=== PATIENT | female | born 1955 | race Caucasian/White ===

== ENCOUNTER 2017-12-19 12:13 | Emergency (ER) | payer OTHER, MEDICARE ==
[~2017-12-19] VITALS: Ht 170.2 cm; Wt 90.7 kg
[~2017-12-19 12:13] MED LIST: ASPIRIN81 M4 PO; ATIVAN1 MG PO; CARVEDILOL25 M1 PO; CARVEDILOL6.25 MG PO; CITALOPRAM HBR20 MG PO; COREG 12.5MG12.5 MG PO; DULOXETINE HCL30 MG PO; ENTRESTO 97 MG1 EACH PO; FAMOTIDINE20 MG PO; GABAPENTIN300 M2 PO; HYDROXYZINE HCL25 M2 PO; LEVEMIR 10100 UNITS/ SC; LEVEMIR100 U/ML SC; LIPITOR80 M1 PO; LISINOPRIL10 MG PO; NORCO 5-325 TA1 EACH PO; NOVOLOG100 U/ML; NOVOLOG100 U/ML SC; NOVOLOG100 UNIT/2; PRILOSEC 20MG C20 MG PO; PRILOSEC40 MG PO; PRINIVIL20 M1 PO; REGLAN INJ10 MG/2 M1 PO; REGLAN10 MG PO; REGLAN5 MG PO; TRAZODONE50 MG PO; V-GO SC; VITAMIN D2000 UNI1 PO
[2017-12-19 12:16] VITALS: BP 149/86
[2017-12-20] MEDS ORDERED: TRAZODONE HCL50 M1 PO (08:46)
== END 2017-12-19 13:36 | disposition admitted as inpatient to this hospital (09) ==
LOC: ERH 12:13
DX: R11.2 Nausea with vomiting, unspecified (principal); R19.7 Diarrhea, unspecified
CPT/HCPCS: 99281; J2765

== ENCOUNTER 2017-12-20 04:46 | Inpatient (IN) | payer OTHER, MEDICARE ==
[~2017-12-20] VITALS: Ht 170.2 cm; Wt 92.3 kg
--- NOTE | 2017-12-20 05:07 | ED GI/GU/ABDOMINAL COMPLAINT ---
See Addendum History of Present Illness General Chief Complaint: General Adult Stated Complaint: NVD, DIABETIC SENT BY FOR FLUIDS Source: patient, family, old records Exam Limitations: no limitations Vital Signs & Intake/Output Vital Signs & Intake/Output Vital Signs Date Time Temp Pulse Resp B/P B/P Pulse O2 O2 Flow FiO2 Mean Ox Delivery Rate 12/20 0643 98.6 88 18 127/82 96 Nasal 2.5L Cannula 12/20 0641 98.6 96 18 127/82 88 Room Air 12/20 0454 96.4 96 20 129/89 95 Room Air Allergies Coded Allergies: Penicillins (UNKNOWN 02/09/16) Reconcile Medications Aspirin (Aspirin*) 81 MG TAB.CHEW 1 TAB PO DAILY HEART HEALTH (Reported) Atorvastatin Calcium (Lipitor) 80 MG TABLET 1 TAB PO DAILY CHOLESTEROL ( Reported) Carvedilol 25 MG TABLET 1 TAB PO BID HEART (Reported) Cholecalciferol (Vitamin D3) (Vitamin D) 2,000 UNIT TABLET 1 TAB PO DAILY VITAMIN SUPPORT (Reported) Citalopram Hydrobromide (Citalopram HBr) 20 MG TABLET 1 TAB PO DAILY DEPRESSION (Reported) Duloxetine HCl 30 MG CAPSULE.DR 1 CAP PO BID DEPRESSION (Reported) Gabapentin 300 MG CAPSULE 1 CAP PO TID DEPRESSION (Reported) Hydrocodone/Acetaminophen ([place] 5-325 Tablet) 5 MG-325 MG TABLET 1-2 TAB PO Q4-6 PRN PRN pain Hydroxyzine Hydrochloride (Atarax) 25 MG TABLET 1 TAB PO BID DEPRESSION ( Reported) Insulin Aspart (Novolog) 100 UNIT/ML VIAL 56 UNITS DAILY DIABETES (Reported) Lisinopril (Prinivil) 20 MG TABLET 1 TAB PO DAILY HTN (Reported) Sacubitril/Valsartan (Entresto 97 MG-103 MG Tablet) 97 MG-103 MG TABLET 1 TAB PO BID HEART (Reported) Triage Nurses Notes Reviewed? yes ? N Is pt currently ? No HPI: Patient presents with nausea vomiting diarrhea over the past few days. Patient has been unable to keep anything except ice chips down. Patient is on insulin pump but she has not been able to take her other medications. Patient has had DKA in the past. Patient was seen by her primary care physician and was sent to the emergency department for evaluation and IV hydration. Patient came here earlier however at that point there was a 6 hour wait and the patient did not want to wait so she went home and then returned now. Patient denies any abdominal pain. Patient denies any chest pain or shortness of breath. There is no dysuria. There are no fevers or chills. (Deepika PECK,Darrin Padgett) Past History Travel History Traveled to [place] past 21 day No Medical History Any Pertinent Medical History? see below for history Neurological: NONE EENT: NONE Cardiovascular: hypertension, hyperlipidemia, PACER/DEFIBR. 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 No (Deepika PECK,Darrin Padgett) Review of Systems Review of Systems Constitutional: Reports: no symptoms. EENTM: Reports: no symptoms. Respiratory: Reports: no symptoms. Cardiovascular: Reports: no symptoms. GI: Reports: see HPI, diarrhea, nausea, vomiting. Genitourinary: Reports: no symptoms. Musculoskeletal: Reports: no symptoms. Skin: Reports: no symptoms. Neurological/Psychological: Reports: no symptoms. Hematologic/Endocrine: Reports: no symptoms. Immunologic/Allergic: Reports: no symptoms. All Other Systems: Reviewed and Negative (Deepika PECK,Darrin Padgett) Physical Exam Physical Exam General Appearance: well developed/nourished, alert, awake, anxious, moderate distress Head: atraumatic, normal appearance Eyes: Bilateral: PERRL, EOMI. Ears, Nose, Throat, Mouth: hearing grossly normal, DRY MUCOSA Neck: normal inspection, supple, full range of motion Respiratory: normal breath sounds, chest non-tender, no respiratory distress, lungs clear Cardiovascular: regular rate/rhythm, normal peripheral pulses Gastrointestinal: normal bowel sounds, soft, non-tender, no organomegaly Back: normal inspection, normal range of motion Extremities: normal range of motion Neurologic/Psych: no motor/sensory deficits, awake, alert, oriented x 3, normal gait, normal mood/affect Skin: intact, normal color, warm/dry Core Measures ACS in differential dx? No Sepsis Present: No Sepsis Focused Exam Completed? No (Deepika PECK,Darrin Padgett) Progress Differential Diagnosis: AMI, bowel obstruction, cholecystitis, diverticulitis, gastritis, hepatitis, ischemic bowel, inflamm bowel dis, pancreatitis, peptic ulcer, PUD/GERD, SBO, UTI/pyelo, DKA Plan of Care: Orders Procedure Date/time Status MIXED VENOUS BLOOD GAS (GEN) 12/20 505 Complete URINALYSIS 12/20 505 Complete TROPONIN LEVEL 12/20 505 Complete LIPASE 12/20 505 Complete COMPREHENSIVE METABOLIC PANEL 12/20 505 Complete CBC WITHOUT DIFFERENTIAL 12/20 505 Complete AMYLASE 12/20 505 Complete ACETONE 12/20 505 Complete EKG 12/20 505 Active Laboratory Tests 12/20/17 0700: Urinalysis LIGHT H, Urine Color YEL, Urine Clarity HAZY H, Urine pH 6.0, Ur Specific [place] 1.020, Urine Protein TRACE H, Urine Ketones 15 H, Urine Nitrite NEG, Urine Bilirubin NEG, Urine Urobilinogen 0.2, Ur Leukocyte Esterase NEG, Ur Microscopic SEDIMENT EXAMINED, Urine RBC 1-3, Urine WBC 1-3 H, Ur Epithelial Cells FEW, Urine Bacteria MOD H, Urine Mucus FEW, Urine Hemoglobin TRACE-INTACT, Urine Glucose >=1000 H 12/20/17 0530: Anion Gap 18 H, Estimated GFR 38 L, BUN/Creatinine Ratio 30.7 H, Glucose 579 *H, Calcium 9.9, Total Bilirubin 0.7, AST 16, ALT 29, Alkaline Phosphatase 74, Troponin I 0.06, Total Protein 6.9, Albumin 4.4, Globulin 2.5, Albumin/Globulin Ratio 1.8, Amylase 34, Lipase 50, CBC w Diff NO MAN DIFF REQ, RBC 4.29, MCV 88.5 , MCH 29.3, MCHC 33.2, RDW 13.0, MPV 9.0, Gran % 76.3 H, Lymphocytes % 13.3 L, Monocytes % 10.2 H, Eosinophils % 0, Basophils % 0.2, Absolute Granulocytes 6.0 , Absolute Lymphocytes 1.0 L, Absolute Monocytes 0.8 H, Absolute Eosinophils 0 , Absolute Basophils 0, Acetone Level POSITIVE : UNDILUTED 12/20/17 0520: Bicarbonate Actual 24, Mixed VBG pH 7.37, Mixed VBG pCO2 43, Mixed VBG O2 Saturation 21 L, P-50 (Temp Corrected) N, Carboxyhemoglobin 0.2 L, O2 Concentration % RA, Temperature 98.6, Phlebotomy Draw Site L HAND Initial ED EKG: PENDING Hand-Off Endorsed To: Damion Kimbrough DO Endorsed Time: 0700 Pending: other (RE-EVAL) (Deepika PECK,Darrin Padgett) Departure Departure Disposition: STILL A PATIENT Condition: Stable Clinical Impression Primary Impression: Hyperglycemia Secondary Impressions: Vomiting Referrals: Alta PECK,Maddison Lewis (PCP/Family) Departure Forms: Customer Survey General Discharge Information (Deepika PECK,Darrin Padgett) Departure Comments 12/20/17 7:45 am 62-year-old female signed out to me by Dr. Poe. She is in mild diabetic ketoacidosis but does not want to stay in the hospital. She has an insulin pump. She is self administering 6 units of NovoLog now. She is received 4 L of IV fluids. We will repeat her labs after the fluids. (Damion Kimbrough DO)
[2017-12-20 05:53] LABS: ABSOLUTE BASOPHIL COUNT 0 /CUMM (0.0-0.2); ABSOLUTE EOSINOPHIL COUNT 0 /CUMM (0.0-0.7); ABSOLUTE MONOCYTE COUNT 0.8 /CUMM (0.10-0.60); BASOPHIL % 0.2 % (0.0-2.0); EOSINOPHIL % 0 % (0-5); GRANULOCYTE % 76.3 % (42.2-75.2); MEAN CORPUSCULAR HGB 29.3 PG (27.0-31.0); MEAN CORPUSCULAR HGB CONC 33.2 G/DL (33.0-37.0); MEAN CORPUSCULAR VOLUME 88.5 FL (81.0-99.0); PLATELET COUNT 201 /CUMM (130-400); RED BLOOD CELL CT 4.29 /CUMM (4.20-5.40); WHITE BLOOD CELL COUNT 7.8 /CUMM (4.8-10.8)
[2017-12-20] MEDS ORDERED: TRAZODONE HCL50 M1 PO (08:46)
--- NOTE | 2017-12-20 13:10 | Cons- Endocrinology ---
General Information and HPI Consulting Request Date of Consult: 12/20/17 Requested By: Dr. Kimbrough in ER Reason for Consult: management of uncontrolled DM type 2/ hyperglycemia hyperosmolar state. 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 In ER, blood work showed glucose 579, Cr 1.4, BUN 43, AG 18, bicarb 25; mixed veneous PH 7.37. She received 6 units of insulin sc in ER and 4 liters of normal saline. Repeat blood work done this morning showed glucose 427, Cr. 1.1, bicarb 16 and AG 20 with positive acetone at 1:4 dilution. Repeat FSG was still 389 at around 12 pm. Allergies/Medications Allergies: Coded Allergies: Penicillins (UNKNOWN 02/09/16) Home Med List: Aspirin (Aspirin*) 81 MG TAB.CHEW 1 TAB PO DAILY HEART HEALTH (Reported) Atorvastatin Calcium (Lipitor) 80 MG TABLET 1 TAB PO DAILY CHOLESTEROL ( Reported) Carvedilol 25 MG TABLET 1 TAB PO BID HEART (Reported) Cholecalciferol (Vitamin D3) (Vitamin D) 2,000 UNIT TABLET 1 TAB PO DAILY VITAMIN SUPPORT (Reported) Citalopram Hydrobromide (Citalopram HBr) 20 MG TABLET 1 TAB PO DAILY DEPRESSION (Reported) Duloxetine HCl 30 MG CAPSULE.DR 1 CAP PO BID DEPRESSION (Reported) Gabapentin 300 MG CAPSULE 1 CAP PO TID DEPRESSION (Reported) Hydroxyzine Hydrochloride (Atarax) 25 MG TABLET 1 TAB PO BID DEPRESSION ( Reported) Insulin Aspart (Novolog) 100 UNIT/ML VIAL 56 UNITS DAILY DIABETES (Reported) Lisinopril (Prinivil) 20 MG TABLET 1 TAB PO DAILY HTN (Reported) Sacubitril/Valsartan (Entresto 97 MG-103 MG Tablet) 97 MG-103 MG TABLET 1 TAB PO BID HEART (Reported) Trazodone HCl 50 MG TABLET 1 TAB PO QPM PRN SLEEP (Reported) Review of Systems Review of Systems Constitutional: Reports: see HPI. Cardiovascular: Denies: chest pain. Respiratory: Denies: short of breath. GI: Reports: abdominal pain, nausea. Genitourinary: Denies: dysuria. Hematologic/Endocrine: Reports: polyuria, polydipsia. Past History Travel History Traveled to [place] past 21 day No Medical History Neurological: NONE EENT: NONE Cardiovascular: hypertension, hyperlipidemia, PACER/DEFIBR. 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 Surgical History Surgical History: CABG Family History Relations & Conditions If Any: MOTHER FH: lung cancer Psychosocial History Services at Home: None ETOH Use: denies use Illicit Drug Use: denies illicit drug use Exam & Diagnostic Data Last 24 Hrs of Vital Signs/I&O Vital Signs Date Time Temp Pulse Resp B/P B/P Pulse O2 O2 Flow FiO2 Mean Ox Delivery Rate 12/20 1258 98.2 82 19 123/78 94 Room Air 12/20 0643 98.6 88 18 127/82 96 Nasal 2.5L Cannula 12/20 0641 98.6 96 18 127/82 88 Room Air 12/20 0454 96.4 96 20 129/89 95 Room Air Intake & Output 12/20 1600 12/20 0800 12/20 0000 Intake Total 2060 Output Total 100 Balance 1960 Intake, IV 2000 Intake, Oral 60 Output, Urine 100 Patient 200 lb Weight Physical Exam General Appearance: no apparent distress Neck: normal inspection Respiratory: decreased breath sounds Cardiovascular: regular rate/rhythm Gastrointestinal: soft Extremities: no edema Labs/Kamran Results: Laboratory Tests 12/20 1004 Chemistry Sodium (137 - 145 mmol/L) 142 Potassium (3.5 - 5.1 mmol/L) 4.4 Chloride (98 - 107 mmol/L) 106 Carbon Dioxide (22 - 30 mmol/L) 16 L Anion Gap (5 - 16) 20 H BUN (7 - 17 mg/dL) 37 H Creatinine (0.5 - 1.0 mg/dL) 1.1 H Estimated GFR (>60 ml/min) 51 L BUN/Creatinine Ratio (7 - 25 %) 33.6 H Glucose (65 - 99 mg/dL) 427 H Calcium (8.4 - 10.2 mg/dL) 8.6 Zry-Z-Scciabzdeay Pept (<125 pg/mL) 28995 H Toxicology Acetone Level (NEGATIVE) POSITIVE AT 1:4 DIL 12/20 0700 Urines Urinalysis LIGHT H Urine Color (YEL,AMB,STR) YEL Urine Clarity (CLEAR) HAZY H Urine pH (5.0 - 8.0) 6.0 Ur Specific [place] (1.001 - 1.035) 1.020 Urine Protein (NEG,<30 MG/DL) TRACE H Urine Ketones (NEG) 15 H Urine Nitrite (NEG) NEG Urine Bilirubin (NEG) NEG Urine Urobilinogen (0.1 - 1.0 EU/dl) 0.2 Ur Leukocyte Esterase (NEG) NEG Ur Microscopic SEDIMENT EXAMINED Urine RBC (0 - 5 /HPF) 1-3 Urine WBC (0 - 2 /HPF) 1-3 H Ur Epithelial Cells (NONE,FEW) FEW Urine Bacteria (NEG/NONE) MOD H Urine Mucus (FEW,NONE) FEW Urine Hemoglobin (NEG) TRACE-INTACT Urine Glucose (N MG/DL) >=1000 H 12/20 12/20 0530 0520 Blood Gas Bicarbonate Actual (22 - 26 MEQ/L) 24 Mixed VBG pH (7.31 - 7.41 PH) 7.37 Mixed VBG pCO2 (41 - 51 TORR) 43 Mixed VBG O2 Saturation (35 - 45 TORR) 21 L P-50 (Temp Corrected) N Carboxyhemoglobin (1.5 - 5.0 %) 0.2 L O2 Concentration % RA Temperature (97.0 - 100.0 FARH) 98.6 Chemistry Sodium (137 - 145 mmol/L) 138 Potassium (3.5 - 5.1 mmol/L) 5.1 Chloride (98 - 107 mmol/L) 95 L Carbon Dioxide (22 - 30 mmol/L) 25 Anion Gap (5 - 16) 18 H BUN (7 - 17 mg/dL) 43 H Creatinine (0.5 - 1.0 mg/dL) 1.4 H Estimated GFR (>60 ml/min) 38 L BUN/Creatinine Ratio (7 - 25 %) 30.7 H Glucose (65 - 99 mg/dL) 579 *H Calcium (8.4 - 10.2 mg/dL) 9.9 Total Bilirubin (0.2 - 1.3 mg/dL) 0.7 AST (14 - 36 U/L) 16 ALT (9 - 52 U/L) 29 Alkaline Phosphatase (<127 U/L) 74 Troponin I (< 0.11 ng/ml) 0.06 Total Protein (6.3 - 8.2 g/dL) 6.9 Albumin (3.5 - 5.0 g/dL) 4.4 Globulin (1.9 - 4.2 gm/dL) 2.5 Albumin/Globulin Ratio (1.1 - 2.2 %) 1.8 Amylase (30 - 110 U/L) 34 Lipase (23 - 300 U/L) 50 Hematology CBC w Diff NO MAN DIFF REQ WBC (4.8 - 10.8 /CUMM) 7.8 RBC (4.20 - 5.40 /CUMM) 4.29 Hgb (12.0 - 16.0 G/DL) 12.6 Hct (37 - 47 %) 38.0 MCV (81.0 - 99.0 FL) 88.5 MCH (27.0 - 31.0 PG) 29.3 MCHC (33.0 - 37.0 G/DL) 33.2 RDW (11.5 - 14.5 %) 13.0 Plt Count (130 - 400 /CUMM) 201 MPV (7.4 - 10.4 FL) 9.0 Gran % (42.2 - 75.2 %) 76.3 H Lymphocytes % (20.5 - 51.1 %) 13.3 L Monocytes % (1.7 - 9.3 %) 10.2 H Eosinophils % (0 - 5 %) 0 Basophils % (0.0 - 2.0 %) 0.2 Absolute Granulocytes (1.4 - 6.5 /CUMM) 6.0 Absolute Lymphocytes (1.2 - 3.4 /CUMM) 1.0 L Absolute Monocytes (0.10 - 0.60 /CUMM) 0.8 H Absolute Eosinophils (0.0 - 0.7 /CUMM) 0 Absolute Basophils (0.0 - 0.2 /CUMM) 0 Miscellaneous Phlebotomy Draw Site L HAND Toxicology Acetone Level (NEGATIVE) POSITIVE : UNDILUTED Assessment/Plan Assessment/Plan 62 y/o female who has had a hx of diabetes type 2, dyslipidemia, hypertension, CAD status post CABG, aneurysm repair, history of V-tach status post AICD placement and a pacer placement, history of anxiety and depression, history of CHF due to ischemic cardiomyopathy, was on VGO-20 with insulin bolus between 4-6 units before meals, 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 In ER, blood work showed glucose 579, Cr 1.4, BUN 43, AG 18, bicarb 25; mixed veneous PH 7.37. She received 6 units of insulin sc in ER and 4 liters of normal saline. Repeat blood work done this morning showed glucose 427, Cr. 1.1, bicarb 16 and AG 20 with positive acetone at 1:4 dilution suggestive of hyperosmolar hyperglycemic state. However, her bicarb has declined from 25 at around 5 am to 16 at around 10 am. Repeat BNP 37979. management: 1. stop VGO device; 2. start insulin drip at 4 units per hour; monitor FSG every one hour; adjust insulin drip rate to decrease glucose level by 50-100 mg/dl/hour; 3. repeat chemistry panel at round 3 pm this afternoon to look for a trend. 4. if her glucose level is better controlled and her bicarb level improves, please inform me and then I will switch insulin drip to an insulin sc regimen. 5. check HbA1c. 6. [place] off [place] [address] and she has had hx of CHF ( EF 25-30% in 2016); 7. consider lasix if it is indicated. will follow. Consult Acknowledgment - Thank you for your consult request.
--- NOTE | 2017-12-20 13:42 | RADIOLOGY REPORT ---
EXAMINATION: XR PORTABLE CHEST CLINICAL INFORMATION: Rule out interstitial edema. Shortness of breath, diabetic ketoacidosis. COMPARISON: 11/26/2015 TECHNIQUE: Portable frontal view of the chest was obtained. FINDINGS: Pulmonary vascularity is increasingly prominent and indistinct, particularly at the lung bases. No pleural effusion seen. No dense focal consolidation or mass. Sternal wires again noted. 3-lead pacer/AICD again seen with contiguous, intact leads unchanged in position. IMPRESSION: Pulmonary vascularity is increasingly prominent and indistinct, consistent with mild interstitial pulmonary edema. No pleural effusions however.
--- NOTE | 2017-12-20 14:00 | History & Physical ---
General Information and HPI MD Statement: I have seen and personally examined ISADORA LONG and documented this H&P. The patient is a 62 year old F who presented with a patient stated chief complaint of [nausea, vomiting and diarrhea]. Source of Information: patient, old records Exam Limitations: no limitations History of Present Illness: This is a 62 yo female with PMH of IDDM on insulin pump, HTN, HLD, ischemic cardiomyopathy with reduced EF 25-30% s/p PM and AICD, depression, OCD who comes in for CC of nausea, vomiting, diarrhea and malaise. She states that she has had DKA before and "this is how I usually feel before I get really bad." She was told by PCP to come to ED for IVF yesterday. She came but did not want to "wait for 6 hrs to be seen," so she came back this morning. Pt states that she symptoms started last Sunday with dairrhea "about 4x every hour." Subsequently, the next day her diarrhea stopped and she started vomiting. She has continued with severe nausea and has been unable to take any of her medication since Sunday. She has sick contacts in grandchildren who were diagnosed with influenza , strep, and "GI bug" recently. 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 She states that since her illness she has not taken any insulin (since Sunday until this AM) and her intake was mostly popsicles, juice and soda. She has not taken any of her other medications due to vomiting. She has no SOB, CP, LR, change in vision, abdominal pain. She does endorse increased thirst, decreased urination, nausea, vomiting, diarrhea and increased anxiety. Soc hx pertinent for 60-80 pack yr smoking hx but pt quit 15+ yrs ago. Surgical hx pertinent for CABG. Allergies/Medications Allergies: Coded Allergies: Penicillins (UNKNOWN 02/09/16) Home Med list Aspirin (Aspirin*) 81 MG TAB.CHEW 1 TAB PO DAILY HEART HEALTH (Reported) Atorvastatin Calcium (Lipitor) 80 MG TABLET 1 TAB PO DAILY CHOLESTEROL ( Reported) Carvedilol 25 MG TABLET 1 TAB PO BID HEART (Reported) Cholecalciferol (Vitamin D3) (Vitamin D) 2,000 UNIT TABLET 1 TAB PO DAILY VITAMIN SUPPORT (Reported) Citalopram Hydrobromide (Citalopram HBr) 20 MG TABLET 1 TAB PO DAILY DEPRESSION (Reported) Duloxetine HCl 30 MG CAPSULE.DR 1 CAP PO BID DEPRESSION (Reported) Gabapentin 300 MG CAPSULE 1 CAP PO TID DEPRESSION (Reported) Hydroxyzine Hydrochloride (Atarax) 25 MG TABLET 1 TAB PO BID DEPRESSION ( Reported) Insulin Aspart (Novolog) 100 UNIT/ML VIAL 56 UNITS DAILY DIABETES (Reported) Lisinopril (Prinivil) 20 MG TABLET 1 TAB PO DAILY HTN (Reported) Sacubitril/Valsartan (Entresto 97 MG-103 MG Tablet) 97 MG-103 MG TABLET 1 TAB PO BID HEART (Reported) Trazodone HCl 50 MG TABLET 1 TAB PO QPM PRN SLEEP (Reported) Compliance With Home Meds: GOOD Past History Travel History Traveled to [place] past 21 day No Medical History Neurological: NONE EENT: NONE Cardiovascular: hypertension, hyperlipidemia, PACER/DEFIBR. 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 Exam & Diagnostic Data Last 24 Hrs of Vital Signs/I&O Vital Signs Date Time Temp Pulse Resp B/P B/P Pulse O2 O2 Flow FiO2 Mean Ox Delivery Rate 12/20 1258 98.2 82 19 123/78 94 Room Air 12/20 0643 98.6 88 18 127/82 96 Nasal 2.5L Cannula 12/20 0641 98.6 96 18 127/82 88 Room Air 12/20 0454 96.4 96 20 129/89 95 Room Air Intake & Output 12/20 1600 12/20 0800 12/20 0000 Intake Total 0 Output Total 100 Balance 1960 Intake, IV 2000 Intake, Oral 60 Output, Urine 100 Patient 90.718 kg Weight Physical Exam General Appearance Alert, Oriented X3, Cooperative, No Acute Distress Skin sm. lesions on bilat le that pt picks at. no open sores or bleeding HEENT Atraumatic, PERRLA, EOMI, mucous membranes dry. Neck Supple, No JVD Cardiovascular Regular Rate, Normal S1, Normal S2, No Murmurs Lungs wheezes throughout all lung nichols Abdomen Normal Bowel Sounds, Soft, No Tenderness Extremities No Edema Last 24 Hrs of Labs/Kamran: Laboratory Tests 12/20/17 1004: Anion Gap 20 H, Estimated GFR 51 L, BUN/Creatinine Ratio 33.6 H, Glucose 427 H, Calcium 8.6, Wqd-M-Yumkvwczmsl Pept 34233 H, Acetone Level POSITIVE AT 1:4 DIL 12/20/17 0700: Urinalysis LIGHT H, Urine Color YEL, Urine Clarity HAZY H, Urine pH 6.0, Ur Specific [place] 1.020, Urine Protein TRACE H, Urine Ketones 15 H, Urine Nitrite NEG, Urine Bilirubin NEG, Urine Urobilinogen 0.2, Ur Leukocyte Esterase NEG, Ur Microscopic SEDIMENT EXAMINED, Urine RBC 1-3, Urine WBC 1-3 H, Ur Epithelial Cells FEW, Urine Bacteria MOD H, Urine Mucus FEW, Urine Hemoglobin TRACE-INTACT, Urine Glucose >=1000 H 12/20/17 0530: Anion Gap 18 H, Estimated GFR 38 L, BUN/Creatinine Ratio 30.7 H, Glucose 579 *H, Calcium 9.9, Total Bilirubin 0.7, AST 16, ALT 29, Alkaline Phosphatase 74, Troponin I 0.06, Total Protein 6.9, Albumin 4.4, Globulin 2.5, Albumin/Globulin Ratio 1.8, Amylase 34, Lipase 50, CBC w Diff NO MAN DIFF REQ, RBC 4.29, MCV 88.5 , MCH 29.3, MCHC 33.2, RDW 13.0, MPV 9.0, Gran % 76.3 H, Lymphocytes % 13.3 L, Monocytes % 10.2 H, Eosinophils % 0, Basophils % 0.2, Absolute Granulocytes 6.0 , Absolute Lymphocytes 1.0 L, Absolute Monocytes 0.8 H, Absolute Eosinophils 0 , Absolute Basophils 0, Acetone Level POSITIVE : UNDILUTED 12/20/17 0520: Bicarbonate Actual 24, Mixed VBG pH 7.37, Mixed VBG pCO2 43, Mixed VBG O2 Saturation 21 L, P-50 (Temp Corrected) N, Carboxyhemoglobin 0.2 L, O2 Concentration % RA, Temperature 98.6, Phlebotomy Draw Site L HAND Microbiology 12/20 1407 BLOOD: Blood Culture - RECD 12/20 1359 BLOOD: Blood Culture - RECD 12/20 1314 URINE ROUT: Urine Culture - ORD Assessment/Plan Assessment: ASSESSMENT: This is a 62 yo female with PMH of of IDDM on insulin pump, HTN, HLD, ischemic cardiomyopathy with reduced EF 25-30% s/p PM and AICD, depression, and OCD who come in for CC nausea, vomiting, diarrhea and malaise. Given hx of multiple episodes of DKA and recent precipitating illness with glucose 579 pt was worked up with initial concern for diabetic ketoacidosis. However, initial labs showed bicarb 25, slight anion gap and VBG pH 7.34. As such, pt seems to meet critera more suggestive of Hyperosmolar Non-ketotic state. After 4L of IVF and 6u SQ insulin in ED her bicarb dropped from 25--> 16, her AG went from 18-->20, and her glucose went from 579 --> 427. Additionally, noting that pt has EF 25 and has already recieved 4L of IVF, BNP 45026 and pt c/o subjective slight SOB, we stopped IVF for c/o volume overload. Given worsening of her hyperosmolar state and concern for precipitating heart failure pt will be admitted to ICU for further management of HHS. PLAN: 1. Hyperosmolar non ketotic state: Initial labs are more suggestive of HHS than DKA, but upon 4l hydration her bicarb dropped to 16. Will continue to monitor pt in ICU and re-assess with next labs. Suspect precipitant of her HHS is gastrointestinal illness likely of viral etiology. She states she is feeling better now, her abdominal exam is benign. If clinically worsens will consider abdominal imaging. * STOP Insulin pump * Insulin drip * Appreciate Endo recs * Hba1c * Blood cx * Urine cx * UA * Q1hr FS * HOLD HYDRATION * Repeat labs at 3 PM 2. HFrEF: Echo in 2016 shows EF 25-30%. Pt recieved large amt of fluid in ED. BNP 06257. She c/o some slight subjective SOB. She has PM/AICD in place. On physical exam pt had wheezing to auscultation. I could not appreciate crackles. She denies hx of COPD but does have prominent smoking hx. * XRAY * HOLD fluids * Consider diuresis if clinically worsens * Appreciate cardio consult * Hold home carvedilol * If pt detriorates will place on bipap * Trop and EKG x3 * Con't Entresto 3. Depression/OCD: * Continue citalopram, duloxetine * Hold Trazadone, Atarax and Gabapentin 4. CAD: * Con't ASA * Con't Lipitor DVT Ppx FC NPO As Ranked By This Provider Problem List: 1. Vomiting 2. Nausea and vomiting Core Measures/Misc (07/22) Acute Coronary Syndrome ACS Diagnosis: No Congestive Heart Failure Congestive Heart Failure Diagnosis No Cerebrovascular Accident CVA/TIA Diagnosis: No VTE (View Protocol) VTE Risk Factors Acute Medical Illness No Mechanical VTE Prophylaxis d/t N/A MechProphylax Ordered No VTE Pharm Prophylaxis d/t NA PharmProphylax ordered Sepsis (View protocol) Sepsis Present: No
[2017-12-20 15:00] VITALS: BP 132/82
--- NOTE | 2017-12-20 18:33 | Event Note ---
Event Note Event Note: AG closed, updated Dr. anthony, per her recs will DC Ins drip, will start Levemir 10 BID and novolog SS. Updated Dr. Herrera about positive trops. Patient is asymptomatic, EKG no significant changed. He will see the patient tonight.
--- NOTE | 2017-12-20 19:07 | Cons- Cardiology ---
General Information and HPI Consulting Request Date of Consult: 12/20/17 Requested By: Reid Pitts MD History of Present Illness: The patient is a 62-year-old female with history of CAD, status post CABG, ischemic heart myopathy, LVEF 25-30%, implanted defibrillator. She presented with complaint of nausea, vomiting, diarrhea, and malaise. She has been exposed to multiple people with viral infections recently. She was found to have severely elevated blood sugar, and evidence of hyperosmolar hyperglycemic state. She is noted to have elevated proBNP and mild troponin elevation. She notes recent shortness of breath with mild chest tightness associated with that. She was treated with 4 L of IV fluid, however that has been held because of concern for volume overload. She was admitted to the intensive care unit and started on insulin drip. No syncope. No orthopnea. No diaphoresis. Allergies/Medications Allergies: Coded Allergies: Penicillins (UNKNOWN 02/09/16) Home Med List: Aspirin (Aspirin*) 81 MG TAB.CHEW 1 TAB PO DAILY HEART HEALTH (Reported) Atorvastatin Calcium (Lipitor) 80 MG TABLET 1 TAB PO DAILY CHOLESTEROL ( Reported) Carvedilol 25 MG TABLET 1 TAB PO BID HEART (Reported) Cholecalciferol (Vitamin D3) (Vitamin D) 2,000 UNIT TABLET 1 TAB PO DAILY VITAMIN SUPPORT (Reported) Citalopram Hydrobromide (Citalopram HBr) 20 MG TABLET 1 TAB PO DAILY DEPRESSION (Reported) Duloxetine HCl 30 MG CAPSULE.DR 1 CAP PO BID DEPRESSION (Reported) Gabapentin 300 MG CAPSULE 1 CAP PO TID DEPRESSION (Reported) Hydroxyzine Hydrochloride (Atarax) 25 MG TABLET 1 TAB PO BID DEPRESSION ( Reported) Insulin Aspart (Novolog) 100 UNIT/ML VIAL 56 UNITS DAILY DIABETES (Reported) Lisinopril (Prinivil) 20 MG TABLET 1 TAB PO DAILY HTN (Reported) Sacubitril/Valsartan (Entresto 97 MG-103 MG Tablet) 97 MG-103 MG TABLET 1 TAB PO BID HEART (Reported) Trazodone HCl 50 MG TABLET 1 TAB PO QPM PRN SLEEP (Reported) Current Medications: Current Medications Sig/Theo Start time Last Medication Dose Route Stop Time Status Admin Acetaminophen 650 MG Q6P PRN 12/20 1315 AC PO Acetaminophen 1,000 MG Q6P PRN 12/20 1315 AC IV Aspirin 81 MG DAILY 12/20 1522 AC 12/20 PO 1741 Atorvastatin Calcium 80 MG DAILY 12/20 1522 AC 12/20 PO 1741 Citalopram 20 MG DAILY 12/21 1000 AC Hydrobromide PO Citalopram 20 MG ONCE ONE 12/20 1145 DC 12/20 Hydrobromide PO 12/20 1146 1352 Duloxetine HCl 30 MG BID 12/20 2200 AC PO Enoxaparin Sodium 40 MG DAILY 12/21 1000 AC SC Gabapentin 0 .STK-MED ONE 12/20 1153 DC PO Gabapentin 300 MG STAT STA 12/20 1145 DC 12/20 PO 12/20 1146 1155 Hydroxyzine HCl 0 .STK-MED ONE 12/20 1153 DC PO Hydroxyzine HCl 25 MG ONCE ONE 12/20 1145 DC 12/20 PO 12/20 1146 1155 Insulin Aspart 0 TIDAC/HS 12/20 2100 AC SC Insulin Detemir 10 UNITS BID 12/20 1815 AC 12/20 SC 1812 Insulin Human Regular 100 UNIT Q24H 12/20 1230 AC 12/20 Sodium Chloride 100 ML IV 1238 Insulin Human Regular 100 UNIT ONCE ONE 12/20 1200 DC Sodium Chloride 100 ML IV 12/20 1201 Lisinopril 20 MG DAILY 12/21 1000 AC PO Metoclopramide HCl 10 MG ONCE ONE 12/20 0545 DC 12/20 IV 12/20 0546 0551 Morphine Sulfate 2 MG Q4P PRN 12/20 1315 AC IV Ondansetron HCl 4 MG Q6P PRN 12/20 1315 AC IV Ondansetron HCl 0 .STK-MED ONE 12/20 0532 DC .ROUTE Ondansetron HCl 4 MG ONCE ONE 12/20 05 DC 12/20 IV 12/20 0516 0530 Sodium Chloride 1,000 ML BOLUS ONE 12/20 0645 DC 12/20 IV 12/20 0744 0731 Sodium Chloride 1,000 ML BOLUS ONE 12/20 0645 DC 12/20 IV 12/20 0744 0731 Sodium Chloride 1,000 ML BOLUS ONE 12/20 0515 DC 12/20 IV 12/20 0614 0530 Sodium Chloride 1,000 ML BOLUS ONE 12/20 0515 DC 12/20 IV 12/20 0614 0608 Review of Systems Review of Systems: No rash. No trauma. No fever. No chills. All other systems were reviewed, and were noted to be negative. Past History Travel History Traveled to [place] past 21 day No Medical History Blood Transfusion Hx: Yes Neurological: NONE EENT: NONE Cardiovascular: hypertension, hyperlipidemia, PACER/DEFIBR. 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 Home Services at Home: None Smoking Status: Former Smoker ETOH Use: denies use Illicit Drug Use: denies illicit drug use Exam & Diagnostic Data Vital Signs and I&O Vital Signs Date Time Temp Pulse Resp B/P B/P Pulse O2 O2 Flow FiO2 Mean Ox Delivery Rate 12/20 1530 92 Room Air 12/20 1500 99.0 99 20 132/82 92 Room Air 12/20 1258 98.2 82 19 123/78 94 Room Air 12/20 0643 98.6 88 18 127/82 96 Nasal 2.5L Cannula 12/20 0641 98.6 96 18 127/82 88 Room Air 12/20 0454 96.4 96 20 129/89 95 Room Air Intake & Output 12/20 1600 12/20 0800 12/20 0000 12/19 1600 12/19 0800 12/19 0000 Intake Total 200 2060 Output Total 100 Balance 200 1960 Intake, IV 2000 Intake, Oral 200 60 Output, Urine 100 Patient 203 lb 200 lb Weight Weight Bed scale Measurement Method Physical Exam: Gen: The patient is in no acute distress HEENT: Normal nose, ears, and oropharynx. Pupils equal bilaterally. Conjunctiva normal. Neck: Supple with no JVD, no masses, and no thyromegaly Lungs: Clear to auscultation with normal respiratory effort Heart: RRR, S1, S2, 1 out of 6 systolic murmur. No peripheral edema, 2+ pulses in the lower extremities bilaterally Abdomen: Soft, nontender, no masses. No hepatomegaly. No splenomegaly Extremities: No clubbing or cyanosis. Normal muscle strength in the upper and lower extremities Skin: Normal skin turgor with no skin ulcers or lesions noted. Neuro: Cranial nerves intact. Sensation intact Psych: Alert and oriented x 3 with appropriate affect Labs/Kamran Results: Laboratory Tests 12/20 12/20 12/20 1850 1600 1600 Chemistry Sodium (137 - 145 mmol/L) 136 L Potassium (3.5 - 5.1 mmol/L) 4.5 Chloride (98 - 107 mmol/L) 100 Carbon Dioxide (22 - 30 mmol/L) 26 Anion Gap (5 - 16) 11 BUN (7 - 17 mg/dL) 37 H Creatinine (0.5 - 1.0 mg/dL) 1.2 H Estimated GFR (>60 ml/min) 46 L BUN/Creatinine Ratio (7 - 25 %) 30.8 H Lactic Acid (0.7 - 2.1 mmol/L) Pending 2.2 H Troponin I (< 0.11 ng/ml) 0.18 *H 12/20 1004 Chemistry Sodium (137 - 145 mmol/L) 142 Potassium (3.5 - 5.1 mmol/L) 4.4 Chloride (98 - 107 mmol/L) 106 Carbon Dioxide (22 - 30 mmol/L) 16 L Anion Gap (5 - 16) 20 H BUN (7 - 17 mg/dL) 37 H Creatinine (0.5 - 1.0 mg/dL) 1.1 H Estimated GFR (>60 ml/min) 51 L BUN/Creatinine Ratio (7 - 25 %) 33.6 H Glucose (65 - 99 mg/dL) 427 H Calcium (8.4 - 10.2 mg/dL) 8.6 [id number] Pept (<125 pg/mL) 56413 H Toxicology Acetone Level (NEGATIVE) POSITIVE AT 1:4 DIL 12/20 0700 Urines Urinalysis LIGHT H Urine Color (YEL,AMB,STR) YEL Urine Clarity (CLEAR) HAZY H Urine pH (5.0 - 8.0) 6.0 Ur Specific [place] (1.001 - 1.035) 1.020 Urine Protein (NEG,<30 MG/DL) TRACE H Urine Ketones (NEG) 15 H Urine Nitrite (NEG) NEG Urine Bilirubin (NEG) NEG Urine Urobilinogen (0.1 - 1.0 EU/dl) 0.2 Ur Leukocyte Esterase (NEG) NEG Ur Microscopic SEDIMENT EXAMINED Urine RBC (0 - 5 /HPF) 1-3 Urine WBC (0 - 2 /HPF) 1-3 H Ur Epithelial Cells (NONE,FEW) FEW Urine Bacteria (NEG/NONE) MOD H Urine Mucus (FEW,NONE) FEW Urine Hemoglobin (NEG) TRACE-INTACT Urine Glucose (N MG/DL) >=1000 H 12/20 12/20 0530 0520 Blood Gas Bicarbonate Actual (22 - 26 MEQ/L) 24 Mixed VBG pH (7.31 - 7.41 PH) 7.37 Mixed VBG pCO2 (41 - 51 TORR) 43 Mixed VBG O2 Saturation (35 - 45 TORR) 21 L P-50 (Temp Corrected) N Carboxyhemoglobin (1.5 - 5.0 %) 0.2 L O2 Concentration % RA Temperature (97.0 - 100.0 FARH) 98.6 Chemistry Sodium (137 - 145 mmol/L) 138 Potassium (3.5 - 5.1 mmol/L) 5.1 Chloride (98 - 107 mmol/L) 95 L Carbon Dioxide (22 - 30 mmol/L) 25 Anion Gap (5 - 16) 18 H BUN (7 - 17 mg/dL) 43 H Creatinine (0.5 - 1.0 mg/dL) 1.4 H Estimated GFR (>60 ml/min) 38 L BUN/Creatinine Ratio (7 - 25 %) 30.7 H Glucose (65 - 99 mg/dL) 579 *H Hemoglobin A1c (4.2 - 5.8 %) Pending Calcium (8.4 - 10.2 mg/dL) 9.9 Total Bilirubin (0.2 - 1.3 mg/dL) 0.7 AST (14 - 36 U/L) 16 ALT (9 - 52 U/L) 29 Alkaline Phosphatase (<127 U/L) 74 Troponin I (< 0.11 ng/ml) 0.06 Total Protein (6.3 - 8.2 g/dL) 6.9 Albumin (3.5 - 5.0 g/dL) 4.4 Globulin (1.9 - 4.2 gm/dL) 2.5 Albumin/Globulin Ratio (1.1 - 2.2 %) 1.8 Amylase (30 - 110 U/L) 34 Lipase (23 - 300 U/L) 50 Hematology CBC w Diff NO MAN DIFF REQ WBC (4.8 - 10.8 /CUMM) 7.8 RBC (4.20 - 5.40 /CUMM) 4.29 Hgb (12.0 - 16.0 G/DL) 12.6 Hct (37 - 47 %) 38.0 MCV (81.0 - 99.0 FL) 88.5 MCH (27.0 - 31.0 PG) 29.3 MCHC (33.0 - 37.0 G/DL) 33.2 RDW (11.5 - 14.5 %) 13.0 Plt Count (130 - 400 /CUMM) 201 MPV (7.4 - 10.4 FL) 9.0 Gran % (42.2 - 75.2 %) 76.3 H Lymphocytes % (20.5 - 51.1 %) 13.3 L Monocytes % (1.7 - 9.3 %) 10.2 H Eosinophils % (0 - 5 %) 0 Basophils % (0.0 - 2.0 %) 0.2 Absolute Granulocytes (1.4 - 6.5 /CUMM) 6.0 Absolute Lymphocytes (1.2 - 3.4 /CUMM) 1.0 L Absolute Monocytes (0.10 - 0.60 /CUMM) 0.8 H Absolute Eosinophils (0.0 - 0.7 /CUMM) 0 Absolute Basophils (0.0 - 0.2 /CUMM) 0 Miscellaneous Phlebotomy Draw Site L HAND Toxicology Acetone Level (NEGATIVE) POSITIVE : UNDILUTED Diagnostic Data EKG Results EKG tracing is reviewed, and reveals ventricular paced rhythm at a rate of 98 CXR Results Pulmonary vascularity is increasingly prominent and indistinct, consistent with mild interstitial pulmonary edema. No pleural effusions however. Other Results Echocardiogram 11/29/15: Mild left ventricular dilatation. Mild concentric left ventricular hypertrophy. Severely decreased left ventricular systolic function. Left ventricular ejection fraction is estimated at 25-30 %. Defibrillator wire in the right ventricular cavity. Mild mitral regurgitation. Mild tricuspid regurgitation. Right ventricular systolic pressure estimated at 39 mmHg. Mild pulmonic regurgitation. Assessment/Plan Assessment/Plan Assessment: 1. CAD, status post CABG 2. Chronic HFrEF secondary to ischemic cardiomyopathy, with possible mild acute exacerbation 3. Diabetes mild 4. Hyperosmolar hyperkeratotic state 5. Mild troponin elevation, likely secondary to demand ischemia Recommendations: * Would hold IV fluid for now given reduced ejection fraction, and evidence of worsening volume overload on chest x-ray * Insulin as per endocrinology * Continue aspirin * Restart carvedilol if blood pressure is adequate * Note that the CMR list both Entresto and lisinopril, which is incorrect. The patient should be only on an Entresto. Lisinopril and Entresto cannot be given together. If the blood pressure is adequate, would change back to entrusted tomorrow, and discontinue lisinopril. * Repeat echocardiogram * Repeat EKG in the morning Consult Acknowledgment - Thank you for your consult request.
[2017-12-20 23:00] VITALS: BP 130/64
[2017-12-21 05:00] LABS: ABSOLUTE BASOPHIL COUNT 0 /CUMM (0.0-0.2); ABSOLUTE EOSINOPHIL COUNT 0 /CUMM (0.0-0.7); ABSOLUTE LYMPH COUNT 1.3 /CUMM (1.2-3.4); EOSINOPHIL % 0 % (0-5); HEMATOCRIT 37.6 % (37-47); MEAN PLATELET VOLUME 9.1 FL (7.4-10.4)
[2017-12-21 05:26] LABS: BASOPHIL % 0.1 % (0.0-2.0); MEAN CORPUSCULAR HGB 29.9 PG (27.0-31.0); MEAN CORPUSCULAR HGB CONC 33.4 G/DL (33.0-37.0); MEAN CORPUSCULAR VOLUME 89.6 FL (81.0-99.0); PLATELET COUNT 193 /CUMM (130-400); RED BLOOD CELL CT 4.19 /CUMM (4.20-5.40)
[2017-12-21 05:45] LABS: WHITE BLOOD CELL COUNT 16.2 /CUMM (4.8-10.8)
[2017-12-21 05:47] LABS: GRANULOCYTE % 86.2 % (42.2-75.2)
[2017-12-21 08:00] VITALS: BP 130/70
--- NOTE | 2017-12-21 08:57 | Cons- CRCU ---
See Addendum General Information and HPI Consulting Request Date of Consult: 12/21/17 Requested By: Reid Pitts MD Reason for Consult: Hyperosmolar non ketotic state Exam Limitations: no limitations History of Present Illness: This is a 62 yo female with PMH of IDDM on insulin pump, HTN, HLD, ischemic cardiomyopathy with reduced EF 25-30% s/p PM and AICD, depression, OCD who comes in for CC of nausea, vomiting, diarrhea and malaise. She states that she has had DKA before and "this is how I usually feel before I get really bad." She was told by PCP to come to ED for IVF yesterday. She came but did not want to "wait for 6 hrs to be seen," so she came back this morning. Pt states that she symptoms started last Sunday with dairrhea "about 4x every hour." Subsequently, the next day her diarrhea stopped and she started vomiting. She has continued with severe nausea and has been unable to take any of her medication since Sunday. She has sick contacts in grandchildren who were diagnosed with influenza , strep, and "GI bug" recently. 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 She states that since her illness she has not taken any insulin (since Sunday until this AM) and her intake was mostly popsicles, juice and soda. She has not taken any of her other medications due to vomiting. She has no SOB, CP, LR, change in vision, abdominal pain. She does endorse increased thirst, decreased urination, nausea, vomiting, diarrhea and increased anxiety. Soc hx pertinent for 60-80 pack yr smoking hx but pt quit 15+ yrs ago. Surgical hx pertinent for CABG. Allergies/Medications Allergies: Coded Allergies: Penicillins (UNKNOWN 02/09/16) Home Med List: Aspirin (Aspirin*) 81 MG TAB.CHEW 1 TAB PO DAILY HEART HEALTH (Reported) Atorvastatin Calcium (Lipitor) 80 MG TABLET 1 TAB PO DAILY CHOLESTEROL ( Reported) Carvedilol 25 MG TABLET 1 TAB PO BID HEART (Reported) Cholecalciferol (Vitamin D3) (Vitamin D) 2,000 UNIT TABLET 1 TAB PO DAILY VITAMIN SUPPORT (Reported) Citalopram Hydrobromide (Citalopram HBr) 20 MG TABLET 1 TAB PO DAILY DEPRESSION (Reported) Duloxetine HCl 30 MG CAPSULE.DR 1 CAP PO BID DEPRESSION (Reported) Gabapentin 300 MG CAPSULE 1 CAP PO TID DEPRESSION (Reported) Hydroxyzine Hydrochloride (Atarax) 25 MG TABLET 1 TAB PO BID DEPRESSION ( Reported) Insulin Aspart (Novolog) 100 UNIT/ML VIAL 56 UNITS DAILY DIABETES (Reported) Sacubitril/Valsartan (Entresto 97 MG-103 MG Tablet) 97 MG-103 MG TABLET 1 TAB PO BID HEART (Reported) Trazodone HCl 50 MG TABLET 1 TAB PO QPM PRN SLEEP (Reported) Review of Systems Review of Systems Constitutional: Reports: see HPI. Past History Travel History Traveled to [place] past 21 day No Medical History Blood Transfusion Hx: Yes Neurological: NONE EENT: NONE Cardiovascular: hypertension, hyperlipidemia, PACER/DEFIBR. 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 Home Services at Home: None Smoking Status: Former Smoker ETOH Use: denies use Illicit Drug Use: denies illicit drug use Exam & Diagnostic Data Last 24 Hrs of Vital Signs/I&O Vital Signs Date Time Temp Pulse Resp B/P B/P Pulse O2 O2 Flow FiO2 Mean Ox Delivery Rate 12/21 0400 996 Nasal 2.0L Cannula 12/21 0000 96 Nasal 2.0L Cannula 12/20 2300 97.0 82 21 130/64 96 Nasal 2.0L Cannula 12/20 2000 92 Nasal 2.0L Cannula 12/20 1530 92 Room Air 12/20 1500 99.0 99 20 132/82 92 Room Air 12/20 1258 98.2 82 19 123/78 94 Room Air Intake & Output 12/21 1600 12/21 0800 12/21 0000 Intake Total 60 147 Output Total Balance 60 147 Intake, IV 27 Intake, Oral 60 120 Physical Exam General Appearance: well developed/nourished, no apparent distress, alert, awake , comfortable Other Physical Findings: Skin sm. lesions on bilat le that pt picks at. no open sores or bleeding HEENT Atraumatic, PERRLA, EOMI, mucous membranes dry. Neck Supple, No JVD Cardiovascular Regular Rate, Normal S1, Normal S2, No Murmurs Lungs wheezes throughout all lung nichols Abdomen Normal Bowel Sounds, Soft, No Tenderness Extremities No Edema Last 48 Hrs of Labs/Kamran: Laboratory Tests 12/21/17 0945: Troponin I 0.27 *H, CBC w Diff MAN DIFF ORDERED, RBC 3.98 L, MCV 88.8, MCH 29.8 , MCHC 33.5, RDW 13.1, MPV 8.4, Gran % 86.5 H, Lymphocytes % 8.6 L, Monocytes % 4.8, Eosinophils % 0, Basophils % 0.1, Absolute Granulocytes 12.2 H, Absolute Lymphocytes 1.2, Absolute Monocytes 0.7 H, Absolute Eosinophils 0, Absolute Basophils 0, Platelet Estimate ADEQUATE, Normocytic RBCs VERIFIED, Normochromic RBCs VERIFIED 12/21/17 0425: Troponin I 0.27 *H 12/21/17 0425: Anion Gap 15, Estimated GFR 57 L, Glucose 270 H, Calcium 8.9, Phosphorus 3.9, Magnesium 1.6, Total Bilirubin 0.6, AST 23, ALT 19, Albumin 3.5, CBC w Diff NO MAN DIFF REQ, RBC 4.19 L, MCV 89.6, MCH 29.9, MCHC 33.4, RDW 13.0, MPV 9.1, Gran % 86.2 H, Lymphocytes % 7.7 L, Monocytes % 6.0, Eosinophils % 0, Basophils % 0.1, Absolute Granulocytes 14.0 H, Absolute Lymphocytes 1.3, Absolute Monocytes 1.0 H, Absolute Eosinophils 0, Absolute Basophils 0 12/20/172131: Troponin I 0.24 *H 12/20/17 2132: Lactic Acid 1.4 12/20/17 1850: Lactic Acid 2.1 12/20/17 1600: Lactic Acid 2.2 H 12/20/17 1600: Anion Gap 11, Estimated GFR 46 L, BUN/Creatinine Ratio 30.8 H, Troponin I 0.18 *H 12/20/17 1004: Anion Gap 20 H, Estimated GFR 51 L, BUN/Creatinine Ratio 33.6 H, Glucose 427 H, Calcium 8.6, Bxv-E-Rldrxxqsgyy Pept 82661 H, Acetone Level POSITIVE AT 1:4 DIL 12/20/17 0700: Urinalysis LIGHT H, Urine Color YEL, Urine Clarity HAZY H, Urine pH 6.0, Ur Specific [place] 1.020, Urine Protein TRACE H, Urine Ketones 15 H, Urine Nitrite NEG, Urine Bilirubin NEG, Urine Urobilinogen 0.2, Ur Leukocyte Esterase NEG, Ur Microscopic SEDIMENT EXAMINED, Urine RBC 1-3, Urine WBC 1-3 H, Ur Epithelial Cells FEW, Urine Bacteria MOD H, Urine Mucus FEW, Urine Hemoglobin TRACE-INTACT, Urine Glucose >=1000 H 12/20/17 0530: Anion Gap 18 H, Estimated GFR 38 L, BUN/Creatinine Ratio 30.7 H, Glucose 579 *H, Hemoglobin A1c 11.4 H, Calcium 9.9, Total Bilirubin 0.7, AST 16, ALT 29, Alkaline Phosphatase 74, Troponin I 0.06, Total Protein 6.9, Albumin 4.4, Globulin 2.5, Albumin/Globulin Ratio 1.8, Amylase 34, Lipase 50, CBC w Diff NO MAN DIFF REQ, RBC 4.29, MCV 88.5, MCH 29.3, MCHC 33.2, RDW 13.0, MPV 9.0, Gran % 76.3 H, Lymphocytes % 13.3 L, Monocytes % 10.2 H, Eosinophils % 0, Basophils % 0.2, Absolute Granulocytes 6.0, Absolute Lymphocytes 1.0 L, Absolute Monocytes 0.8 H, Absolute Eosinophils 0, Absolute Basophils 0, Acetone Level POSITIVE : UNDILUTED 12/20/17 0520: Bicarbonate Actual 24, Mixed VBG pH 7.37, Mixed VBG pCO2 43, Mixed VBG O2 Saturation 21 L, P-50 (Temp Corrected) N, Carboxyhemoglobin 0.2 L, O2 Concentration % RA, Temperature 98.6, Phlebotomy Draw Site L HAND Microbiology 12/20 1720 NASOPHARYN: Influenza Virus A & B Rapid Smear - COMP Assessment/Plan CRCU Impression/Plan: This is a 62 yo female with PMH of of IDDM on insulin pump, HTN, HLD, ischemic cardiomyopathy with reduced EF 25-30% s/p PM and AICD, depression, and OCD who come in for CC nausea, vomiting, diarrhea and malaise. Given hx of multiple episodes of DKA and recent precipitating illness with glucose 579 pt was worked up with initial concern for diabetic ketoacidosis. However, initial labs showed bicarb 25, slight anion gap and VBG pH 7.34. As such, pt seems to meet critera more suggestive of Hyperosmolar Non-ketotic state. After 4L of IVF and 6u SQ insulin in ED her bicarb dropped from 25--> 16, her AG went from 18-->20, and her glucose went from 579 --> 427. Additionally, noting that pt has EF 25 and has already recieved 4L of IVF, BNP 72772 and pt c/o subjective slight SOB, we stopped IVF for c/o volume overload. Given worsening of her hyperosmolar state and concern for precipitating heart failure pt was admitted to ICU for further management of HHS. The patient is currently TELE hold in ICU PLAN: #Hyperosmolar non ketotic state: Initial labs are more suggestive of HHS than DKA, but upon 4l hydration her bicarb dropped to 16. Insulin drip was discontinued last night. She was put on Levemir 10 units twice a day, Novolog coverage before meals and Novolog coverage at bedtime. Her FSGs were 286, 206, 210 and 302. -Continue insulin sliding scale and bedtime coverage as per endocrinology recommendation. -Hba1c 11.4 -Blood culture, urine culture showed no growth so far will follow up with final sensitivities -Patient had a bump in white count to 16.2 repeat lab showed count of 14.1. Repeating the CBC at 6 PM, the patient remains afebrile. No obvious sources of infection. Consider antibiotics if white count is persistently elevated, there is a possibility of viral gastroenteritis. -C. difficile pending #HFrEF: Echo in 2016 shows EF 25-30%. Pt recieved large amt of fluid in ED. BNP 21927. She c/o some slight subjective SOB. She has PM/AICD in place.She denies hx of COPD but does have prominent smoking hx. -Would hold IV fluid for now given reduced ejection fraction, and evidence of worsening volume overload on chest x-ray -Consider diuresis if clinically worsens -Continue Entresto and carvedilol -Echocardiogram pending #Depression/OCD: -Continue citalopram, duloxetine -Hold Trazadone, Atarax and Gabapentin #CAD: Continue aspirin and statin DVT Ppx/NPO/FC Consult Acknowledgment - Thank you for your consult request.
--- NOTE | 2017-12-21 09:09 | PN- Student ---
Subjective Subjective: Interim: No acute overnight events. On evaluation today pt is alert and conversant, however, c/o worsening of her chronic low back pain of 7/10 due to lying in bed. She also reports worsening of her anxiety today, expressed as being "through the roof". She states taking a shower may relieve some of her OCD symptoms and anxiety. Lastly, reports lower abdominal pain due to lack of recent BM. Denies SOB, CP, palpitations, N/V/D, anuria, fevers,chills. Objective Objective: Vital Signs Date Time Temp Pulse Resp B/P B/P Pulse O2 O2 Flow FiO2 Mean Ox Delivery Rate 12/21 0400 996 Nasal 2.0L Cannula 12/21 0000 96 Nasal 2.0L Cannula 12/20 2300 97.0 82 21 130/64 96 Nasal 2.0L Cannula 12/20 2000 92 Nasal 2.0L Cannula 12/20 1530 92 Room Air 12/20 1500 99.0 99 20 132/82 92 Room Air 12/20 1258 98.2 82 19 123/78 94 Room Air Intake & Output 12/21 1600 12/21 0800 12/21 0000 Intake Total 60 147 Output Total Balance 60 147 Intake, IV 27 Intake, Oral 60 120 Physical Exam: General: Pt lying somewhat uncomfortably in bed. Skin: Warm, dry, no suspicious lesions, no echymosis, no petechiae/purpura HEENT: NCAT, nonicteric sclera, no cervical lymphadenopathy. Pulm: 2L NC, no accessory muscle use, expiratory wheezes throughout, crackles noted L base CV: RRR, S1/s2 noted, no carotid bruits, no JVD, DP pulses faint 1+ bilat, no LE edema, trace sacral edema. Abdom: Obese, soft, tender to lower quadrants, no guarding, no masses. MSK: good range of motion of lower extremities. Neuro: A&O x 3, no sensory or motor deficits of LEs bilat. Results Results: Laboratory Tests 12/21/17424: Troponin I 0.27 *H 12/21/17424: Anion Gap 15, Estimated GFR 57 L, Glucose 270 H, Calcium 8.9, Phosphorus 3.9, Magnesium 1.6, Total Bilirubin 0.6, AST 23, ALT 19, Albumin 3.5, CBC w Diff NO MAN DIFF REQ, RBC 4.19 L, MCV 89.6, MCH 29.9, MCHC 33.4, RDW 13.0, MPV 9.1, Gran % 86.2 H, Lymphocytes % 7.7 L, Monocytes % 6.0, Eosinophils % 0, Basophils % 0.1, Absolute Granulocytes 14.0 H, Absolute Lymphocytes 1.3, Absolute Monocytes 1.0 H, Absolute Eosinophils 0, Absolute Basophils 0 12/20/17 2132: Troponin I 0.24 *H 12/20/17 2132: Lactic Acid 1.4 12/20/17 1850: Lactic Acid 2.1 12/20/17 1600: Lactic Acid 2.2 H 12/20/17 1600: Anion Gap 11, Estimated GFR 46 L, BUN/Creatinine Ratio 30.8 H, Troponin I 0.18 *H 12/20/17 1004: Anion Gap 20 H, Estimated GFR 51 L, BUN/Creatinine Ratio 33.6 H, Glucose 427 H, Calcium 8.6, Ftw-N-Vcqeookhrtj Pept 68623 H, Acetone Level POSITIVE AT 1:4 DIL 12/20/17 0700: Urinalysis LIGHT H, Urine Color YEL, Urine Clarity HAZY H, Urine pH 6.0, Ur Specific [place] 1.020, Urine Protein TRACE H, Urine Ketones 15 H, Urine Nitrite NEG, Urine Bilirubin NEG, Urine Urobilinogen 0.2, Ur Leukocyte Esterase NEG, Ur Microscopic SEDIMENT EXAMINED, Urine RBC 1-3, Urine WBC 1-3 H, Ur Epithelial Cells FEW, Urine Bacteria MOD H, Urine Mucus FEW, Urine Hemoglobin TRACE-INTACT, Urine Glucose >=1000 H 12/20/17 0530: Anion Gap 18 H, Estimated GFR 38 L, BUN/Creatinine Ratio 30.7 H, Glucose 579 *H, Hemoglobin A1c Pending, Calcium 9.9, Total Bilirubin 0.7, AST 16, ALT 29, Alkaline Phosphatase 74, Troponin I 0.06, Total Protein 6.9, Albumin 4.4, Globulin 2.5, Albumin/Globulin Ratio 1.8, Amylase 34, Lipase 50, CBC w Diff NO MAN DIFF REQ, RBC 4.29, MCV 88.5, MCH 29.3, MCHC 33.2, RDW 13.0, MPV 9.0, Gran % 76.3 H, Lymphocytes % 13.3 L, Monocytes % 10.2 H, Eosinophils % 0, Basophils % 0.2, Absolute Granulocytes 6.0, Absolute Lymphocytes 1.0 L, Absolute Monocytes 0.8 H, Absolute Eosinophils 0, Absolute Basophils 0, Acetone Level POSITIVE : UNDILUTED 12/20/17 0520: Bicarbonate Actual 24, Mixed VBG pH 7.37, Mixed VBG pCO2 43, Mixed VBG O2 Saturation 21 L, P-50 (Temp Corrected) N, Carboxyhemoglobin 0.2 L, O2 Concentration % RA, Temperature 98.6, Phlebotomy Draw Site L HAND Microbiology 12/20 1720 NASOPHARYN: Influenza Virus A & B Rapid Smear - COMP 12/20 1525 UPPER RESP: Surveillance Culture - RECD 12/20 1446 GI: Surveillance Culture - COLB 12/20 1407 BLOOD: Blood Culture - RECD 12/20 1359 BLOOD: Blood Culture - RECD 12/20 1314 URINE ROUT: Urine Culture - ORD EXAMINATION: XR PORTABLE CHEST CLINICAL INFORMATION: Rule out interstitial edema. Shortness of breath, diabetic ketoacidosis. COMPARISON: 11/26/2015 TECHNIQUE: Portable frontal view of the chest was obtained. FINDINGS: Pulmonary vascularity is increasingly prominent and indistinct, particularly at the lung bases. No pleural effusion seen. No dense focal consolidation or mass. Sternal wires again noted. 3-lead pacer/AICD again seen with contiguous, intact leads unchanged in position. IMPRESSION: Pulmonary vascularity is increasingly prominent and indistinct, consistent with mild interstitial pulmonary edema. No pleural effusions however. DICTATED BY: Curt Blackman MD DATE/TIME DICTATED:12/20/171337 PRINTING PRESS OPERATOR:CLAUDIA DATE/TIME TRANSCRIBED:12/20/171337 Assessment/Plan Assessment: Pt is a 62 yo WF with a hx of HTN, HLD, IDDM2, CAD s/p 3 vessel CABG, v.tach s/p PM + AICD, DKA, tobacco use, aneurysm repair, HFrEF w/EF of 25-30%, anxiety, depression, OCD who presented to the ED on 12/20/17 with a CC of N/V and poor po intake. ED Labs were notable for BG 579, Cr 1.4, BUN 43, AG 18, bicarb 25, VPh 7.37. She was given 4L bolus of fluid and 6 units of insulin for a working dx of DKA in the setting of probable viral gastroenteritis. Repeat ED labs revealed a worsening bicarb of 16, AG 20,Glu 427 and a BNP of 26,300.Critical care was consulted. Pt was transferred to ICU for management of possible exacerbation of her CHF in attempt to treat her m/l diagnosis of HHS (based on criteria). Pt has since had a CXR revealing mild pulmonary edema. Endocrine and cardiology have been consulted. Plan: Endocrine: HHS - Anion gap now 15. Serum BG much improved, however, still above 200. - Off fluids - D/c insulin drip. Start Levemir 10u BID and Novolog sliding scale, per Endo. - Monitor electrolytes - maintain K+ > 4. - Endo recs appreciated. Cardiovascular: Possible exacerbation of CHF after receiving 4L bolus. HFrEF 25- 30%. Elevated troponins, up today to 0.27 from 0.24 m/l 2/2 demand ischemia. L base crackles on auscultation. CXR revealed mild pulmonary edema. - Hold fluids per cardiology. - Continue ASA - Restart carvedilol if BP adequate. - Pt must not be on Entresto + Lisinopril. Per cardio, restart Entresto today and d/c Lisinopril. - Repeat ECHO - Repeat EKG + troponins - Appreciate cardiology recs. Psych: Worsening anxiety, OCD, may also be contributing to worsening LBP. - Continue citalopram, duloxetine. - Consider starting cyclobenzaprine. GI: Pt reports lower abdominal pain 2/2 lack of BM today, however, refuses laxatives/stool softeners as is concerned about recurrent diarrhea. - monitor daily BMs. - if no BM later today encourage stool softener use. Housekeeping: DVT prophylaxis - Lovenox sq FC Diabetic diet. PATTI Alonso-S2 12/21/17
--- NOTE | 2017-12-21 09:55 | PN- Diabetes ---
Assessment/Plan Diabetes Assessment: 62 y/o female who has had a hx of diabetes type 2, dyslipidemia, hypertension, CAD status post CABG, aneurysm repair, history of V-tach status post AICD placement and a pacer placement, history of anxiety and depression, history of CHF due to ischemic cardiomyopathy, was on VGO-20 with insulin bolus between 4-6 units before meals, presented to ED with nausea and poor po intake for several days. In ER, blood work showed glucose 579, Cr 1.4, BUN 43, AG 18, bicarb 25; mixed veneous PH 7.37. Repeat blood work done showed glucose 427, Cr. 1.1, bicarb 16 and AG 20 with positive acetone at 1:4 dilution suggestive of hyperosmolar hyperglycemic state. However, her bicarb declined from 25 to 16. Repeat BNP was 66000. She was admitted to ICU for insulin drip. Insulin drip was discontinued last night. She was put on Levemir 10 units twice a day, Novolog coverage before meals and Novolog coverage at bedtime. Her FSGs were 286, 206, 210 and 302. She has been feeling anxious. Plan: 1. continue Levemir 10 units twice a day; 2. adjust Novolog coverage before meals; detail see the inpatient DM order; 3. continue the current Novolog coverage at ebdtime; 4. monitor FSGs. will follow. Inpatient Diabetes Orders Before Each Meal: Bolus Insulin: Novolog < 80 mg/dl: no coverage 80-100 mg/dl: 4 units 101-120 mg/dl: 4 units 121-150 mg/dl: 4 units 151-200 mg/dl: 6 units 201-250 mg/dl: 8 units 251-300 mg/dl: 10 units 301-350 mg/dl: 12 units 351-400 mg/dl: 13 units > 400 mg/dl: 14 units Subjective Subjective: She feels anxious. Objective Last 24 Hrs of Vital Signs/I&O Vital Signs Date Time Temp Pulse Resp B/P B/P Pulse O2 O2 Flow FiO2 Mean Ox Delivery Rate 12/21 0400 996 Nasal 2.0L Cannula 12/21 0000 96 Nasal 2.0L Cannula 12/20 2300 97.0 82 21 130/64 96 Nasal 2.0L Cannula 12/20 2000 92 Nasal 2.0L Cannula 12/20 1530 92 Room Air 02/15 1500 99.0 99 20 132/82 92 Room Air 12/20 1258 98.2 82 19 123/78 94 Room Air Intake & Output 12/21 1600 12/21 0800 12/21 0000 Intake Total 60 147 Output Total Balance 60 147 Intake, IV 27 Intake, Oral 60 120 Findings Pertinent Lab/Kamran Results: Laboratory Tests 12/21 12/21 12/21 0945 0425 0425 Chemistry Sodium (137 - 145 mmol/L) 137 Potassium (3.5 - 5.1 mmol/L) 4.6 Chloride (98 - 107 mmol/L) 98 Carbon Dioxide (22 - 30 mmol/L) 23 Anion Gap (5 - 16) 15 BUN (7 - 17 mg/dL) 33 H Creatinine (0.5 - 1.0 mg/dL) 1.0 Estimated GFR (>60 ml/min) 57 L Glucose (65 - 99 mg/dL) 270 H Calcium (8.4 - 10.2 mg/dL) 8.9 Phosphorus (2.5 - 4.5 mg/dL) 3.9 Magnesium (1.6 - 2.3 mg/dL) 1.6 Total Bilirubin (0.2 - 1.3 mg/dL) 0.6 AST (14 - 36 U/L) 23 ALT (9 - 52 U/L) 19 Troponin I (< 0.11 ng/ml) Pending 0.27 *H Albumin (3.5 - 5.0 g/dL) 3.5 Hematology CBC w Diff Pending NO MAN DIFF REQ WBC (4.8 - 10.8 /CUMM) Pending 16.2 H RBC (4.20 - 5.40 /CUMM) Pending 4.19 L Hgb (12.0 - 16.0 G/DL) Pending 12.5 Hct (37 - 47 %) Pending 37.6 MCV (81.0 - 99.0 FL) Pending 89.6 MCH (27.0 - 31.0 PG) Pending 29.9 MCHC (33.0 - 37.0 G/DL) Pending 33.4 RDW (11.5 - 14.5 %) Pending 13.0 Plt Count (130 - 400 /CUMM) Pending 193 MPV (7.4 - 10.4 FL) Pending 9.1 Gran % (42.2 - 75.2 %) 86.2 H Lymphocytes % (20.5 - 51.1 %) 7.7 L Monocytes % (1.7 - 9.3 %) 6.0 Eosinophils % (0 - 5 %) 0 Basophils % (0.0 - 2.0 %) 0.1 Absolute Granulocytes (1.4 - 6.5 /CUMM) 14.0 H Absolute Lymphocytes (1.2 - 3.4 /CUMM) 1.3 Absolute Monocytes (0.10 - 0.60 /CUMM) 1.0 H Absolute Eosinophils (0.0 - 0.7 /CUMM) 0 Absolute Basophils (0.0 - 0.2 /CUMM) 0 12/20 12/20 12/20 12/20 12/20 2132 2132 1850 1600 1600 Chemistry Sodium (137 - 145 mmol/L) 136 L Potassium (3.5 - 5.1 mmol/L) 4.5 Chloride (98 - 107 mmol/L) 100 Carbon Dioxide (22 - 30 mmol/L) 26 Anion Gap (5 - 16) 11 BUN (7 - 17 mg/dL) 37 H Creatinine (0.5 - 1.0 mg/dL) 1.2 H Estimated GFR (>60 ml/min) 46 L BUN/Creatinine Ratio (7 - 25 %) 30.8 H Lactic Acid (0.7 - 2.1 mmol/L) 1.4 2.1 2.2 H Troponin I (< 0.11 ng/ml) 0.24 *H 0.18 *H 12/20 1004 Chemistry Sodium (137 - 145 mmol/L) 142 Potassium (3.5 - 5.1 mmol/L) 4.4 Chloride (98 - 107 mmol/L) 106 Carbon Dioxide (22 - 30 mmol/L) 16 L Anion Gap (5 - 16) 20 H BUN (7 - 17 mg/dL) 37 H Creatinine (0.5 - 1.0 mg/dL) 1.1 H Estimated GFR (>60 ml/min) 51 L BUN/Creatinine Ratio (7 - 25 %) 33.6 H Glucose (65 - 99 mg/dL) 427 H Calcium (8.4 - 10.2 mg/dL) 8.6 [id number]-[id number] Pept (<125 pg/mL) 08362 H Toxicology Acetone Level (NEGATIVE) POSITIVE AT 1:4 DIL
[2017-12-21 10:07] LABS: ABSOLUTE BASOPHIL COUNT 0 /CUMM (0.0-0.2); ABSOLUTE EOSINOPHIL COUNT 0 /CUMM (0.0-0.7); ABSOLUTE GRANULOCYTE CT 12.2 /CUMM (1.4-6.5); ABSOLUTE LYMPH COUNT 1.2 /CUMM (1.2-3.4); ABSOLUTE MONOCYTE COUNT 0.7 /CUMM (0.10-0.60); BASOPHIL % 0.1 % (0.0-2.0); EOSINOPHIL % 0 % (0-5); GRANULOCYTE % 86.5 % (42.2-75.2); HEMATOCRIT 35.4 % (37-47); MEAN CORPUSCULAR HGB 29.8 PG (27.0-31.0); MEAN CORPUSCULAR HGB CONC 33.5 G/DL (33.0-37.0); MEAN CORPUSCULAR VOLUME 88.8 FL (81.0-99.0); MEAN PLATELET VOLUME 8.4 FL (7.4-10.4); PLATELET COUNT 190 /CUMM (130-400); RBC DISTRIBUTION WIDTH 13.1 % (11.5-14.5); RED BLOOD CELL CT 3.98 /CUMM (4.20-5.40); WHITE BLOOD CELL COUNT 14.1 /CUMM (4.8-10.8)
[2017-12-21 16:00] VITALS: BP 132/72
--- NOTE | 2017-12-21 17:59 | ECHOCARDIOGRAM REPORT ---
ISADORA LONG Age: 62 : 1955 Gender: F Exam Date: 12/21/2017 13:48 Exam Location: [facility] Ht (in): 67 Wt (lb): 203 BSA: 2.12 BP: 130 / 70 Ordering Physician: Asha Gerard MD Referring Physician: Asha Gerard MD Technologist: Mario Roche [facility] Room Number: 111-01 Indications: Ischemic Cardiomyopathy Rhythm: Paced rhythm Technical Quality: Fair FINDINGS Left Ventricle Mild left ventricular dilatation. Severely decreased left ventricular systolic function. LVEF 30%. Global hypokinesis. Right Ventricle Right ventricle not well visualized. Normal right ventricular size and function. Right ventricle not well visualized. Catheter/pacemaker wire in the right ventricular cavity. Right Atrium Normal right atrial size. Left Atrium Mild left atrial dilatation. Mitral Valve Mitral valve thickened. Mild mitral regurgitation. Aortic Valve Diffuse thickening (sclerosis) of the aortic valve cusps without reduced excursion. No aortic stenosis. No aortic regurgitation. Tricuspid Valve Tricuspid valve not well visualized, grossly normal. Trace tricuspid regurgitation. Right ventricular systolic pressure estimated at 56 mmHg. Pulmonic Valve Pulmonic valve not well visualized, grossly normal. Mild pulmonic regurgitation. Pericardium No pericardial effusion. Great Vessels Normal size aortic root. CONCLUSIONS Mild left ventricular dilatation. Severely decreased left ventricular systolic function. LVEF 30%. Global hypokinesis. Catheter/pacemaker wire in the right ventricular cavity. Mild left atrial dilatation. Mild mitral regurgitation. Trace tricuspid regurgitation. Mild pulmonic regurgitation. Matthew Herrera M.D. (Electronically Signed) Final Date: 21 December 2017 17:58 MEASUREMENTS (Male / Female) Normal Values 2D ECHO LV Diastolic Diameter PLAX 6.1 cm 4.2 - 5.9 / 3.9 - 5.3 cm LV Systolic Diameter PLAX 5.3 cm 2.1 - 4.0 cm LV Fractional Shortening PLAX 13.1 % 25 - 46 % LV Ejection Fraction 2D Teich 27.6 % IVS Diastolic Thickness 1.1 cm LVPW Diastolic Thickness 1.4 cm LV Relative Wall Thickness 0.4 LVOT Diameter 1.9 cm Aortic Root Diameter 2.4 cm LA Systolic Diameter LX 5.2 cm 3.0 - 4.0 / 2.7 - 3.8 cm LV Ejection Fraction MOD BP 35.7 % >= 55 % LV Cardiac Index MOD BP 2525.8 cm/minm LV Diastolic Length 4C 8.7 cm 6.9 - 10.3 cm LV Diastolic Area 4C 43.1 cm LV Diastolic Volume MOD 4C 173.0 cm LV Ejection Fraction MOD 4C 28.9 % LV Stroke Volume MOD 4C 50.0 cm LV Cardiac Index MOD 4C 1913.5 cm/minm LV Systolic Length 4C 8.5 cm LV Systolic Area 4C 34.6 cm LV Systolic Volume MOD 4C 123.0 cm LV Ejection Fraction MOD 2C 36.4 % LV Cardiac Index MOD 2C 2449.3 cm/minm LV Diastolic Volume 4C AL 180.9 cm 85 - 139 / 69 - 109 cm LV Systolic Volume 4C AL 119.7 cm LV Ejection Fraction 4C AL 33.8 % LV Stroke Volume 4C AL 61.2 cm LV Cardiac Index 4C AL 2340.2 cm/minm LV Ejection Fraction 2C AL 39.0 % LV Cardiac Index 2C AL 2683.1 cm/minm LA Volume 40.0 cm 18 - 58 / 22 - 52 cm DOPPLER AV Peak Velocity 143.0 cm/s AV Peak Gradient 8.2 mmHg LVOT Peak Velocity 80.9 cm/s LVOT Peak Gradient 2.6 mmHg AV Area Cont Eq pk 1.6 cm Mitral E Point Velocity 106.0 cm/s MV Deceleration Time 141.0 ms TR Peak Velocity 319.0 cm/s TR Peak Gradient 40.7 mmHg Right Atrial Pressure 15.0 mmHg Pulmonary Artery Systolic Pressu 55.7 mmHg Right Ventricular Systolic Press 55.7 mmHg PV Peak Velocity 100.0 cm/s PV Peak Gradient 4.0 mmHg
[2017-12-21 18:56] LABS: ABSOLUTE BASOPHIL COUNT 0 /CUMM (0.0-0.2); ABSOLUTE EOSINOPHIL COUNT 0 /CUMM (0.0-0.7); ABSOLUTE GRANULOCYTE CT 8.6 /CUMM (1.4-6.5); ABSOLUTE LYMPH COUNT 1.6 /CUMM (1.2-3.4); ABSOLUTE MONOCYTE COUNT 0.6 /CUMM (0.10-0.60); BASOPHIL % 0.4 % (0.0-2.0); EOSINOPHIL % 0 % (0-5); HEMATOCRIT 34.9 % (37-47); MEAN CORPUSCULAR HGB 30.1 PG (27.0-31.0); MEAN CORPUSCULAR HGB CONC 33.7 G/DL (33.0-37.0); MEAN CORPUSCULAR VOLUME 89.4 FL (81.0-99.0); MEAN PLATELET VOLUME 8.9 FL (7.4-10.4); PLATELET COUNT 176 /CUMM (130-400); WHITE BLOOD CELL COUNT 10.8 /CUMM (4.8-10.8)
--- NOTE | 2017-12-21 22:42 | Event Note ---
Event Note Event Note: Patient's manual blood pressure 78/48, recheck 80/46, 78/44 Patient is asymptomatic. Stating her baseline blood pressure in 90s. Administered 2 50 mL of IV normal saline. Blood pressure improved to 98/60, stable to be transfered to telemetry.
[2017-12-21 23:00] VITALS: BP 98/58
[2017-12-22 00:03] VITALS: BP 98/60
[2017-12-22 05:45] VITALS: BP 102/58
[2017-12-22 08:13] LABS: ABSOLUTE BASOPHIL COUNT 0 /CUMM (0.0-0.2); ABSOLUTE EOSINOPHIL COUNT 0 /CUMM (0.0-0.7); ABSOLUTE GRANULOCYTE CT 5.9 /CUMM (1.4-6.5); ABSOLUTE LYMPH COUNT 0.8 /CUMM (1.2-3.4); ABSOLUTE MONOCYTE COUNT 0.6 /CUMM (0.10-0.60); BASOPHIL % 0.1 % (0.0-2.0); EOSINOPHIL % 0 % (0-5); GRANULOCYTE % 79.8 % (42.2-75.2); HEMATOCRIT 35.2 % (37-47); MEAN CORPUSCULAR HGB 29.9 PG (27.0-31.0); MEAN CORPUSCULAR HGB CONC 33.4 G/DL (33.0-37.0); MEAN CORPUSCULAR VOLUME 89.5 FL (81.0-99.0); MEAN PLATELET VOLUME 8.9 FL (7.4-10.4); PLATELET COUNT 165 /CUMM (130-400); RBC DISTRIBUTION WIDTH 13.1 % (11.5-14.5); RED BLOOD CELL CT 3.94 /CUMM (4.20-5.40); WHITE BLOOD CELL COUNT 7.4 /CUMM (4.8-10.8)
--- NOTE | 2017-12-22 10:46 | PN- Diabetes ---
Assessment/Plan Diabetes Assessment: Patient states she feels improved. She is on Levemir 10 units twice a day and sliding scale NovoLog coverage before meals starting with 4 units for 80-150 glucose. She has had no further nausea or vomiting and is eating well. Fingerstick blood sugar this morning before breakfast this to 24. Yesterday her fingerstick blood sugars were 286 before lunch 206 at suppertime and 140 at bedtime. Plan: Suggest continue the present insulin. Her blood sugars are in a reasonable range. Subjective Subjective: Feels improved Review of Systems Constitutional: Denies: chills, fever. Cardiovascular: Denies: chest pain. Gastrointestinal: Denies: abdominal pain, nausea, vomiting. Skin: Reports: no symptoms. Objective Last 24 Hrs of Vital Signs/I&O Vital Signs Date Time Temp Pulse Resp B/P B/P Pulse O2 O2 Flow FiO2 Mean Ox Delivery Rate 12/22 852 78 112/12/22 0545 98.1 70 22 102/58 94 Nasal 2.0L Cannula 12/22 2 98.5 70 22 98/60 93 Nasal 2.0L Cannula 12/22 0000 Nasal Cannula 12/21 2300 96.8 62 24 98/58 95 Nasal 2.0L Cannula 12/21 1600 94 Nasal 2.0L Cannula 12/21 1600 99.6 94 22 132/72 94 Nasal 2.0L Cannula 12/21 1558 99.6 90 23 132/72 Intake & Output 12/22 1600 12/22 0812/22 0000 Intake Total 370 Output Total 500 Balance -130 Intake, IV 250 Intake, Oral 120 Output, Urine 500 Vital Signs Date Time Temp Pulse Resp B/P B/P Pulse O2 O2 Flow FiO2 Mean Ox Delivery Rate 12/22 852 78 112/70 12/22 0545 98.1 70 22 102/58 94 Nasal 2.0L Cannula 12/22 0003 98.5 70 22 98/60 93 Nasal 2.0L Cannula 12/22 0000 Nasal Cannula 12/21 2300 96.8 62 24 98/58 95 Nasal 2.0L Cannula 12/21 1600 94 Nasal 2.0L Cannula 12/21 1600 99.6 94 22 132/72 94 Nasal 2.0L Cannula 12/21 1558 99.6 90 23 132/72 Intake & Output 12/22 1600 12/22 0800 12/22 0000 Intake Total 370 Output Total 500 Balance -130 Intake, IV 250 Intake, Oral 120 Output, Urine 500 Physical Exam General Appearance: alert, awake, comfortable Head: normal appearance Neck: normal inspection Respiratory: normal breath sounds Cardiovascular: regular rate/rhythm Abdomen: normal bowel sounds Current Medications: Current Medications Sig/Theo Start time Last Medication Dose Route Stop Time Status Admin Acetaminophen 1,000 MG .STK-MED ONE 12/21 2356 DC IV 12/21 2357 Acetaminophen 650 MG Q6P PRN 12/20 1315 PO Acetaminophen 1,000 MG Q6P PRN 12/20 1315 AC 12/22 IV 0004 Aspirin 81 MG DAILY 12/20 1522 AC 12/22 PO 0850 Atorvastatin Calcium 80 MG DAILY 12/20 1522 AC 12/22 PO 0854 Carvedilol 25 MG BID 12/21 1446 AC 12/22 PO 0853 Citalopram 20 MG DAILY 12/21 1000 AC 12/22 Hydrobromide PO 0849 Duloxetine HCl 30 MG BID 12/20 2200 AC 12/22 PO 0854 Enoxaparin Sodium 40 MG DAILY 12/21 1000 AC 12/22 SC 0855 Insulin Aspart 0 TIDAC/HS 12/20 2100 AC 12/22 SC 0850 Insulin Detemir 10 UNITS BID 12/20 1815 AC 12/22 SC 0850 Morphine Sulfate 2 MG Q4P PRN 12/20 1315 AC 12/22 IV 0426 Ondansetron HCl 4 MG Q6P PRN 12/20 1315 AC 12/22 IV 0427 Sacubitril/Valsartan 97 MG BID 12/21 1045 AC 12/22 PO 0853 Sodium Chloride 250 ML BOLUS ONE 12/21 2245 DC 12/21 IV 12/21 2344 2244 Findings Pertinent Lab/Kamran Results: Laboratory Tests 12/22 12/21 0636 1800 Chemistry Sodium (137 - 145 mmol/L) 133 L Potassium (3.5 - 5.1 mmol/L) 4.3 Chloride (98 - 107 mmol/L) 96 L Carbon Dioxide (22 - 30 mmol/L) 30 Anion Gap (5 - 16) 8 BUN (7 - 17 mg/dL) 27 H Creatinine (0.5 - 1.0 mg/dL) 0.8 Estimated GFR (>60 ml/min) > 60 Glucose (65 - 99 mg/dL) 185 H Calcium (8.4 - 10.2 mg/dL) 8.8 Phosphorus (2.5 - 4.5 mg/dL) 2.8 Magnesium (1.6 - 2.3 mg/dL) 1.7 Total Bilirubin (0.2 - 1.3 mg/dL) 0.9 AST (14 - 36 U/L) 19 ALT (9 - 52 U/L) 28 Albumin (3.5 - 5.0 g/dL) 2.8 L Hematology CBC w Diff NO MAN DIFF REQ NO MAN DIFF REQ WBC (4.8 - 10.8 /CUMM) 7.4 10.8 RBC (4.20 - 5.40 /CUMM) 3.94 L 3.90 L Hgb (12.0 - 16.0 G/DL) 11.8 L 11.7 L Hct (37 - 47 %) 35.2 L 34.9 L MCV (81.0 - 99.0 FL) 89.5 89.4 MCH (27.0 - 31.0 PG) 29.9 30.1 MCHC (33.0 - 37.0 G/DL) 33.4 33.7 RDW (11.5 - 14.5 %) 13.1 13.0 Plt Count (130 - 400 /CUMM) 165 176 MPV (7.4 - 10.4 FL) 8.9 8.9 Gran % (42.2 - 75.2 %) 79.8 H 79.0 H Lymphocytes % (20.5 - 51.1 %) 11.4 L 14.6 L Monocytes % (1.7 - 9.3 %) 8.7 6.0 Eosinophils % (0 - 5 %) 0 0 Basophils % (0.0 - 2.0 %) 0.1 0.4 Absolute Granulocytes (1.4 - 6.5 /CUMM) 5.9 8.6 H Absolute Lymphocytes (1.2 - 3.4 /CUMM) 0.8 L 1.6 Absolute Monocytes (0.10 - 0.60 /CUMM) 0.6 0.6 Absolute Eosinophils (0.0 - 0.7 /CUMM) 0 0 Absolute Basophils (0.0 - 0.2 /CUMM) 0 0 02/16 1600 Chemistry Troponin I Cancelled
--- NOTE | 2017-12-22 13:38 | PN- Att Addend ---
Attending Addendum Attending Brief Note Patient seen/examined bedside. Patient denies any new complaints. Patient is resolved DKA with endocrinology following. Insulin regimen as per endocrinology. Contnue titrating insulin and monitoring blood sugar. Patient provide diabetes education and follow up outpatient Endocrinology Dr Wang. PE unremarkable Vitals stable. Admission Lab Results I reviewed the following labs: Laboratory Tests 12/22 12/21 0636 1800 Chemistry Sodium (137 - 145 mmol/L) 133 L Potassium (3.5 - 5.1 mmol/L) 4.3 Chloride (98 - 107 mmol/L) 96 L Carbon Dioxide (22 - 30 mmol/L) 30 Anion Gap (5 - 16) 8 BUN (7 - 17 mg/dL) 27 H Creatinine (0.5 - 1.0 mg/dL) 0.8 Estimated GFR (>60 ml/min) > 60 Glucose (65 - 99 mg/dL) 185 H Calcium (8.4 - 10.2 mg/dL) 8.8 Phosphorus (2.5 - 4.5 mg/dL) 2.8 Magnesium (1.6 - 2.3 mg/dL) 1.7 Total Bilirubin (0.2 - 1.3 mg/dL) 0.9 AST (14 - 36 U/L) 19 ALT (9 - 52 U/L) 28 Albumin (3.5 - 5.0 g/dL) 2.8 L Hematology CBC w Diff NO MAN DIFF REQ NO MAN DIFF REQ WBC (4.8 - 10.8 /CUMM) 7.4 10.8 RBC (4.20 - 5.40 /CUMM) 3.94 L 3.90 L Hgb (12.0 - 16.0 G/DL) 11.8 L 11.7 L Hct (37 - 47 %) 35.2 L 34.9 L MCV (81.0 - 99.0 FL) 89.5 89.4 MCH (27.0 - 31.0 PG) 29.9 30.1 MCHC (33.0 - 37.0 G/DL) 33.4 33.7 RDW (11.5 - 14.5 %) 13.1 13.0 Plt Count (130 - 400 /CUMM) 165 176 MPV (7.4 - 10.4 FL) 8.9 8.9 Gran % (42.2 - 75.2 %) 79.8 H 79.0 H Lymphocytes % (20.5 - 51.1 %) 11.4 L 14.6 L Monocytes % (1.7 - 9.3 %) 8.7 6.0 Eosinophils % (0 - 5 %) 0 0 Basophils % (0.0 - 2.0 %) 0.1 0.4 Absolute Granulocytes (1.4 - 6.5 /CUMM) 5.9 8.6 H Absolute Lymphocytes (1.2 - 3.4 /CUMM) 0.8 L 1.6 Absolute Monocytes (0.10 - 0.60 /CUMM) 0.6 0.6 Absolute Eosinophils (0.0 - 0.7 /CUMM) 0 0 Absolute Basophils (0.0 - 0.2 /CUMM) 0 0 12/21 1600 Chemistry Troponin I Cancelled Admission Meds I reviewed the following Meds: Current Medications Sig/Theo Start time Last Medication Dose Stop Time Status Admin Acetaminophen 650 MG Q6P PRN 12/20 1315 AC (Tylenol) Acetaminophen 1,000 MG Q6P PRN 12/20 1315 AC 12/22 (Ofirmev) 0004 Aspirin 81 MG DAILY 12/20 1522 AC 12/22 (Aspirin) 0850 Atorvastatin Calcium 80 MG DAILY 12/20 1522 AC 12/22 (Lipitor) 0854 Carvedilol 25 MG BID 12/21 1446 AC 12/22 (Coreg) 0853 Citalopram 20 MG DAILY 12/21 1000 AC 12/22 Hydrobromide 0849 (Celexa) Duloxetine HCl 30 MG BID 12/20 2200 AC 12/22 (Cymbalta) 0854 Enoxaparin Sodium 40 MG DAILY 12/21 1000 AC 12/22 (Lovenox) 0855 Insulin Aspart 0 TIDAC/HS 12/20 2100 AC 12/22 (NovoLOG) 1207 Insulin Detemir 10 UNITS BID 12/20 1815 AC 12/22 (Levemir) 0850 Morphine Sulfate 2 MG Q4P PRN 12/20 1315 AC 12/22 (Morphine) 0426 Ondansetron HCl 4 MG Q6P PRN 12/20 1315 AC 12/22 (Zofran) 0427 Sacubitril/Valsartan 97 MG BID 12/21 1045 AC 12/22 (ENTRESTRO) 0853
[2017-12-22 15:06] VITALS: BP 104/60
[2017-12-22 22:38] VITALS: BP 98/54
[2017-12-23 06:15] VITALS: BP 103/55
[2017-12-23 08:31] VITALS: BP 103/55
--- NOTE | 2017-12-23 11:24 | PN- Diabetes ---
Assessment/Plan Diabetes Assessment: The patient feels very good today. She states has had no further nausea or vomiting. She is on Levemir 10 units twice a day as well as sliding scale NovoLog starting with 4 units for 80-150. Yesterday her fingerstick blood sugars were 224 before breakfast 218 before lunch 103 before dinner 129 at bedtime. This morning her fingerstick sugar was 130. Plan: Suggest that the patient can be discharged from the diabetes point of view today. If she goes home she can go back on the VGO 20. The VGO 20 will deliver 20 units of background insulin the patient can take 3-4 clicks before each meal. Each click will deliver 2 units of rapid acting insulin. However she should not restart the VGO until this evening because she has Levemir on board. She should have lunch in the hospital before she goes and this meals should be covered with NovoLog as per the present sliding scale. She should measure her sugars 4 times a day and report them to the office. She will follow-up with Dr. Argueta in the office who has seen her before. Subjective Subjective: Feels much improved Review of Systems Constitutional: Denies: chills, fever. Cardiovascular: Denies: chest pain. Gastrointestinal: Denies: nausea, vomiting. Skin: Reports: no symptoms. Objective Last 24 Hrs of Vital Signs/I&O Vital Signs Date Time Temp Pulse Resp B/P B/P Pulse O2 O2 Flow FiO2 Mean Ox Delivery Rate 12/23 899 Room Air 12/23 0831 77 103/55 12/23 0615 98.2 77 18 103/55 96 Nasal 3.0L Cannula 12/22 2237 97.6 73 24 98/54 92 Nasal Cannula 12/22 2200 83 98/54 12/22 1506 98.1 74 20 104/60 93 Nasal 2.0L Cannula Intake & Output 12/23 1600 12/23 0800 12/23 0000 Intake Total 310 Output Total 350 Balance -40 Intake, IV 10 Intake, Oral 300 Output, Urine 350 Vital Signs Date Time Temp Pulse Resp B/P B/P Pulse O2 O2 Flow FiO2 Mean Ox Delivery Rate 12/23 0800 Room Air 12/23 0831 77 103/55 12/23 0615 98.2 77 18 103/55 96 Nasal 3.0L Cannula 12/22 2237 97.6 73 24 98/54 92 Nasal Cannula 12/22 2201 83 98/54 12/22 1506 98.1 74 20 104/60 93 Nasal 2.0L Cannula Intake & Output 12/23 1600 12/23 0800 12/23 0000 Intake Total 310 Output Total 350 Balance -40 Intake, IV 10 Intake, Oral 300 Output, Urine 350 Physical Exam General Appearance: alert, awake, comfortable Head: normal appearance Respiratory: normal breath sounds Cardiovascular: regular rate/rhythm Abdomen: normal bowel sounds, soft Extremities: normal inspection Current Medications: Current Medications Sig/Theo Start time Last Medication Dose Route Stop Time Status Admin Acetaminophen 650 MG Q6P PRN 12/20 1315 AC PO Acetaminophen 1,000 MG Q6P PRN 12/20 1315 AC 12/22 IV 0004 Aspirin 81 MG DAILY 12/20 1522 AC 12/23 PO 0832 Atorvastatin Calcium 80 MG DAILY 12/20 1522 AC 12/23 PO 0832 Carvedilol 25 MG BID 12/21 1446 AC 12/23 PO 0831 Citalopram 20 MG DAILY 12/21 1000 AC 12/23 Hydrobromide PO 0831 Duloxetine HCl 30 MG BID 12/20 2200 AC 12/23 PO 0832 Enoxaparin Sodium 40 MG DAILY 12/21 1000 AC 12/23 SC 0834 Furosemide 20 MG DAILY 12/22 1626 AC 12/23 PO 0833 Insulin Aspart 0 TIDAC/HS 12/20 2100 AC 12/23 SC 0829 Insulin Detemir 10 UNITS BID 12/20 1815 AC 12/23 SC 0829 Morphine Sulfate 2 MG Q4P PRN 12/20 1315 AC 12/23 IV 0356 Ondansetron HCl 4 MG .STK-MED ONE 12/23 0011 DC IM 12/23 0012 Ondansetron HCl 4 MG Q6P PRN 12/20 1315 AC 12/23 IV 0011 Sacubitril/Valsartan 97 MG BID 12/21 1045 AC 12/23 PO 0833 Findings Pertinent Lab/Kamran Results: Laboratory Tests 12/23 0710 Chemistry Sodium (137 - 145 mmol/L) 134 L Potassium (3.5 - 5.1 mmol/L) 3.7 Chloride (98 - 107 mmol/L) 96 L Carbon Dioxide (22 - 30 mmol/L) 30 Anion Gap (5 - 16) 8 BUN (7 - 17 mg/dL) 24 H Creatinine (0.5 - 1.0 mg/dL) 0.7 Estimated GFR (>60 ml/min) > 60 BUN/Creatinine Ratio (7 - 25 %) 34.3 H
--- NOTE | 2017-12-23 11:51 | PN- Housestaff ---
Subjective Follow-up For: Hyperosmolar nonketotic state HFrEF Subjective: Seen and examined Feels better and tolerating food well Review of Systems Constitutional: Reports: see HPI. Comments: ROS negative except the above Objective Last 24 Hrs of Vital Signs/I&O Vital Signs Date Time Temp Pulse Resp B/P B/P Pulse O2 O2 Flow FiO2 Mean Ox Delivery Rate 12/23 0900 Room Air 12/23 0831 77 103/55 12/23 0615 98.2 77 18 103/55 96 Nasal 3.0L Cannula 12/22 2238 97.6 73 24 98/54 92 Nasal Cannula 12/22 2201 83 98/54 12/22 1506 98.1 74 20 104/60 93 Nasal 2.0L Cannula Intake & Output 12/23 1600 12/23 0800 12/23 0000 Intake Total 310 Output Total 350 Balance -40 Intake, IV 10 Intake, Oral 300 Output, Urine 350 Physical Exam General Appearance: Alert, Oriented X3, Cooperative, No Acute Distress Skin: No Rashes, No Breakdown Skin Temp/Moisture Exam: Warm/Dry HEENT: Atraumatic, PERRLA Neck: Supple Cardiovascular: Normal S1, Normal S2, No Murmurs Lungs: Clear to Auscultation, Normal Air Movement Abdomen: Normal Bowel Sounds, Soft, No Tenderness Neurological: Normal Gait, Normal Speech Extremities: No Clubbing, No Cyanosis, No Edema Vascular: Normal Pulses Current Medications: Current Medications Sig/Theo Start time Last Medication Dose Route Stop Time Status Admin Acetaminophen 650 MG Q6P PRN 12/20 1315 DCD PO Acetaminophen 1,000 MG Q6P PRN 12/20 1315 DCD 12/22 IV 0004 Aspirin 81 MG DAILY 12/20 1522 DCD 12/23 PO 0832 Atorvastatin Calcium 80 MG DAILY 12/20 1522 DCD 12/23 PO 0832 Carvedilol 25 MG BID 12/21 1446 DCD 12/23 PO 0831 Citalopram 20 MG DAILY 12/21 1000 DCD 12/23 Hydrobromide PO 0831 Duloxetine HCl 30 MG BID 12/20 2200 DCD 12/23 PO 0832 Enoxaparin Sodium 40 MG DAILY 12/21 1000 DCD 12/23 SC 0834 Furosemide 20 MG DAILY 12/22 1626 DCD 12/23 PO 0833 Insulin Aspart 0 TIDAC/HS 12/20 2100 DCD 12/23 SC 1205 Insulin Detemir 10 UNITS BID 12/20 1815 DCD 12/23 SC 0829 Morphine Sulfate 2 MG Q4P PRN 12/20 1315 DC 12/23 IV 0356 Ondansetron HCl 4 MG .STK-MED ONE 12/23 0011 DC IM 12/23 0012 Ondansetron HCl 4 MG Q6P PRN 12/20 1315 DCD 12/23 IV 0011 Sacubitril/Valsartan 97 MG BID 12/21 1045 DCD 12/23 PO 0833 Last 24 Hrs of Lab/Kamran Results Last 24 Hrs of Labs/Mics: Laboratory Tests 12/23/17 0710: Anion Gap 8, Estimated GFR > 60, BUN/Creatinine Ratio 34.3 H Assessment/Plan Assessment: This is a 62 yo female with PMH of of IDDM on insulin pump, HTN, HLD, ischemic cardiomyopathy with reduced EF 25-30%, V.tach s/p PM and AICD, depression, and OCD who come in for CC nausea, vomiting, diarrhea and malaise. Admitted to ICU with concerns of fluid overload and worsening of AG after 4L of fluid resuscitation. Her AG closed with IV insulin drip, started on levemir subsequently. She did have elevated trops without any new wall motion abnormalities, started on IV lasix and transitioned to oral lasix. Transferred to telemetry floor once stable Problem list 1. Hyperosmolar hyperglycemic state 2. Mild troponin elevation, likely secondary to demand ischemia 3. Chronic HFrEF secondary to ischemic cardiomyopathy, with possible mild acute exacerbation 4. Diabetes mild Hyperosmolar hyperglycemic state Once anion gap resolved, started on levemir. At discharge today she was back on VGO pump 20units daily and sliding scale requiring 3-4 clicks prior to meal. She needs to follow up with as outpatient. Demand ischemia with ECHO showing global hypokinesis, EF 30% Patient remained stable on furosemide. We added furosemide 20mg for her regimen. Continued all her home meds including ASA, Coreg, Entresto, Atorvastatin. Discontinued losartan as already on Entresto. She needs to follow up with cardiology as outpatient DVT prophylaxis SC lovenox Code status full code Problem List: 1. Nausea and vomiting 2. S/P BIVENT DEFIBRILLATOR/PPM 3. Leukocytosis 4. Ischemic cardiomyopathy 5. Hyperglycemia 6. Dehydration Pain Ratin Pain Location: n/a Pain Goal: Pain 4 or less Pain Plan: tylenol prn Tomorrow's Labs & Rationales: none
--- NOTE | 2017-12-23 11:51 | PN- Cardiology ---
Subjective Subjective: Patient is resting comfortably and offers no complaints Objective Vital Signs and I&Os Vital Signs Date Time Temp Pulse Resp B/P B/P Pulse O2 O2 Flow FiO2 Mean Ox Delivery Rate 12/23 0900 Room Air 12/23 0831 77 103/55 12/23 0615 98.2 77 18 103/55 96 Nasal 3.0L Cannula 12/22 2238 97.6 73 24 98/54 92 Nasal Cannula 12/22 2201 83 98/54 12/22 1506 98.1 74 20 104/60 93 Nasal 2.0L Cannula Intake & Output 12/23 1600 12/23 0800 12/23 0000 12/22 1600 12/22 0800 12/22 0000 Intake Total 310 460 370 Output Total 350 550 500 Balance -40 -90 -130 Intake, IV 10 10 250 Intake, Oral 300 450 120 Output, Urine 350 550 500 Patient 203 lb Weight Physical Exam: General: no apparent distress. Alert. Eyes: No obvious scleral icterus. HEENT: No jugular venous distention or abnormal jugular venous pulsations. Cardiovascular: Normal intensity S1/S2. AICD Respiratory: Lungs clear to auscultation bilaterally. Abdomen: Soft, nontender with no guarding or rebound tenderness. Musculoskeletal: No clubbing or cyanosis noted, no edema Skin: Warm Neurologic: No gross focal deficits noted. Current Medications: Current Medications Sig/Theo Start time Last Medication Dose Route Stop Time Status Admin Acetaminophen 650 MG Q6P PRN 12/20 1315 AC PO Acetaminophen 1,000 MG Q6P PRN 12/20 1315 AC 12/22 IV 0004 Aspirin 81 MG DAILY 12/20 1522 AC 12/23 PO 0832 Atorvastatin Calcium 80 MG DAILY 12/20 1522 AC 12/23 PO 0832 Carvedilol 25 MG BID 12/21 1446 AC 12/23 PO 0831 Citalopram 20 MG DAILY 12/21 1000 AC 12/23 Hydrobromide PO 0831 Duloxetine HCl 30 MG BID 12/20 2200 AC 12/23 PO 0832 Enoxaparin Sodium 40 MG DAILY 12/21 1000 AC 12/23 SC 0834 Furosemide 20 MG DAILY 12/22 1626 AC 12/23 PO 0833 Insulin Aspart 0 TIDAC/HS 12/20 2100 AC 12/23 SC 0829 Insulin Detemir 10 UNITS BID 12/20 1815 AC 12/23 SC 0829 Morphine Sulfate 2 MG Q4P PRN 12/20 1315 AC 12/23 IV 0356 Ondansetron HCl 4 MG .STK-MED ONE 12/23 0011 DC IM 12/23 0012 Ondansetron HCl 4 MG Q6P PRN 12/20 1315 12/23 IV 0011 Sacubitril/Valsartan 97 MG BID 12/21 1045 12/23 PO 0833 Results Last 48 Hrs of Labs/Mics: Laboratory Tests 12/23/17 0710: Anion Gap 8, Estimated GFR > 60, BUN/Creatinine Ratio 34.3 H 12/22/17 0636: Anion Gap 8, Estimated GFR > 60, Glucose 185 H, Calcium 8.8, Phosphorus 2.8, Magnesium 1.7, Total Bilirubin 0.9, AST 19, ALT 28, Albumin 2.8 L, CBC w Diff NO MAN DIFF REQ, RBC 3.94 L, MCV 89.5, MCH 29.9, MCHC 33.4, RDW 13.1, MPV 8.9, Gran % 79.8 H, Lymphocytes % 11.4 L, Monocytes % 8.7, Eosinophils % 0, Basophils % 0.1, Absolute Granulocytes 5.9, Absolute Lymphocytes 0.8 L, Absolute Monocytes 0.6, Absolute Eosinophils 0, Absolute Basophils 0 12/21/17 1800: CBC w Diff NO MAN DIFF REQ, RBC 3.90 L, MCV 89.4, MCH 30.1, MCHC 33.7, RDW 13.0 , MPV 8.9, Gran % 79.0 H, Lymphocytes % 14.6 L, Monocytes % 6.0, Eosinophils % 0, Basophils % 0.4, Absolute Granulocytes 8.6 H, Absolute Lymphocytes 1.6, Absolute Monocytes 0.6, Absolute Eosinophils 0, Absolute Basophils 0 12/21/17 1600: Troponin I Cancelled Recent Imaging Studies: Telemetry tracings were personally reviewed and showed ventricular pacing Echo: Mild left ventricular dilatation. Severely decreased left ventricular systolic function. LVEF 30%. Global hypokinesis. Catheter/pacemaker wire in the right ventricular cavity. Mild left atrial dilatation. Mild mitral regurgitation. Trace tricuspid regurgitation. Mild pulmonic regurgitation. Assessment/Plan Assessment/Plan 1. CAD, status post CABG 2. Chronic HFrEF secondary to ischemic cardiomyopathy, with possible mild acute exacerbation 3. Diabetes mild 4. Hyperosmolar hyperkeratotic state 5. Mild troponin elevation, likely secondary to demand ischemia Patient remains hemodynamically stable and resting comfortably with no complaints today. She currently appears euvolemic on exam. Can continue her current anti-myopathic regimen and oral Lasix. Follow-up with cardiology within one week of discharge. Stu Quinones MD [facility] Continue telemetry? No
--- NOTE | 2017-12-23 11:55 | PN- Att Addend ---
See Addendum Attending Addendum Attending Brief Note Patient seen/examined bedside. Patient denies any new complaints. Patient recieved lasix home dose before discharge. Cardiology consulted and Endocrinology consulted. Patient is resolved DKA with endocrinology following. Insulin regimen as per endocrinology. Continue titrating insulin and monitoring blood sugar. Patient provide diabetes education and follow up outpatient Endocrinology Dr Wang/Dr Argueta. PE unremarkable. Vitals stable. Patient is medically stable for discharge. Admission Lab Results I reviewed the following labs: Laboratory Tests 12/23 0710 Chemistry Sodium (137 - 145 mmol/L) 134 L Potassium (3.5 - 5.1 mmol/L) 3.7 Chloride (98 - 107 mmol/L) 96 L Carbon Dioxide (22 - 30 mmol/L) 30 Anion Gap (5 - 16) 8 BUN (7 - 17 mg/dL) 24 H Creatinine (0.5 - 1.0 mg/dL) 0.7 Estimated GFR (>60 ml/min) > 60 BUN/Creatinine Ratio (7 - 25 %) 34.3 H
--- NOTE | 2017-12-23 11:56 | Patient Discharge Instructions ---
Discharge Instructions General Discharge Information You were seen/treated for: DKA Demand ischemia Special Instructions: Please follow up with your PCP in a week Please follow up with as outpatient Please follow up with your Risk Mgr in a week as outpatient The insulin pump (VGO) 20 will deliver 20 units of insulin. Please take 3-4 clicks before each meal. Each click will deliver 2 units of rapid acting insulin. Diet Continue normal diet: Yes Activity Full Activity/No Limits: No Activity Self Limited: Yes Acute Coronary Syndrome Inclusion Criteria At DC or during hospital stay patient has or had the following: ACS DIAGNOSIS No Discharge Core Measures Meds if any: Prescribed or Continued at Discharge Meds if any: NOT Prescribed or Continued at Discharge Congestive Heart Failure Inclusion Criteria At DC or during hospital stay patient has or had the following: CHF DIAGNOSIS No Discharge Core Measures Meds if any: Prescribed or Continued at Discharge Meds if any: NOT Prescribed or Continued at Discharge Cerebrovascular accident Inclusion Criteria At DC or during hospital stay patient has or had the following: CVA/TIA Diagnosis No Discharge Core Measures Meds if any: Prescribed or Continued at Discharge Meds if any: NOT Prescribed or Continued at Discharge Venous thromboembolism Inclusion Criteria VTE Diagnosis No VTE Type NONE VTE Confirmed by (Test) NONE Discharge Core Measures - Per Current guidelines, there needs to be overlap - treatment for the first 5 days of Warfarin therapy. - If discharged on Warfarin prior to 5 days of - overlap therapy, the patient will need to be - assessed for post discharge needs including - *Post discharge parental anticoagulation - *Warfarin and/or parental anticoagulation education - *Follow up date to check INR post discharge At least 5 days overlap therapy as Inpatient No Meds if any: Prescribed or Continued at Discharge Note: Overlap Therapy is Warfarin and Anticoagulant Meds if any: NOT Prescribed or Continued at Discharge
[2017-12-23] MEDS ORDERED: NOVOLOG100 UNIT/2 SC (12:10)
[2017-12-23] MEDS ORDERED: FUROSEMIDE20 M1 PO (12:21)
[2017-12-23] MEDS ORDERED: NOVOLOG100 UNIT/1 SC ×2 (12:30→12:31)
--- NOTE | 2017-12-24 11:14 | Discharge Summary ---
Visit Information Visit Dates Admission Date: 12/20/17 Discharge Date: 12/23/17 Hospital Course Course Attending Physician: Reid Pitts MD Primary Care Physician: Maddison Holm MD Hospital Course: Ms. Bassett is a 62 yo female with PMH of of IDDM on insulin pump, HTN, HLD, ischemic cardiomyopathy with reduced EF 25-30% s/p PM and AICD, depression, and OCD who presented with nausea, vomiting, diarrhea and malaise. Given her history of multiple episodes of DKA and recent precipitating illness she was admitted to ICU with worsening of her hyperosmolar state and concern for precipitating heart failure Problem list: 1. Hyperosmolar non-ketotic state 2. Acute on Chronic CHF 3. Elevated Troponin likely secondary to demand ischemia Hyperosmolar non-ketotic state We suspected the precipitant of her HHS was gastrointestinal illness likely of viral etiology. Endocrinology was consulted. She was administered IV fluids and her anion gap subsequently resolved. Her insulin pump was held. She was started on an insulin infusion and transitioned to Levemir. Patient remained stable. At discharge she was placed back on her pump and instructed to follow up with Endocrinology as an outpatient. Acute on Chronic Heart failure with reduced EF Her elevated troponin was most likely secondary to demand ischemia[place] [address]. Cardiology was consulted. ECHO on admission showed EF 30% with global hypokinesis. CXR showed mild interstitial pulmonary edema without pleural effusion. We added furosemide 20mg to her regimen. We continued all her home meds including ASA, Coreg, Entresto, Atorvastatin. She was instructed to follow up with cardiology as outpatient. Allergies: Coded Allergies: Penicillins (UNKNOWN 02/09/16) Pertinent Lab Results: 12/20/17 XRY-PORTABLE CHEST XRAY FINDINGS: Pulmonary vascularity is increasingly prominent and indistinct, particularly at the lung bases. No pleural effusion seen. No dense focal consolidation or mass. Sternal wires again noted. 3-lead pacer/AICD again seen with contiguous, intact leads unchanged in position. IMPRESSION: Pulmonary vascularity is increasingly prominent and indistinct, consistent with mild interstitial pulmonary edema. No pleural effusions however. 12/21/17-1246 ECHOCARDIOGRAM CONCLUSIONS Mild left ventricular dilatation. Severely decreased left ventricular systolic function. LVEF 30%. Global hypokinesis. Catheter/pacemaker wire in the right ventricular cavity. Mild left atrial dilatation. Mild mitral regurgitation. Trace tricuspid regurgitation. Mild pulmonic regurgitation. Disposition Summary Disposition Principal Diagnosis: Hyperosmolar non ketotic state Additional Diagnosis: Elevated Troponin likely secondary to demand ischemia Acute on Chronic CHF Discharge Disposition: home or self care Discharge Instructions General Discharge Information Code Status: Full Code Patient's Diet: Diabetic Patient's Activity: As tolerated Follow-Up Instructions/Appts: Please follow up with your PCP in a week Please follow up with as outpatient Please follow up with your [facility] in a week as outpatient The insulin pump (VGO) 20 will deliver 20 units of insulin. Please take 3-4 clicks before each meal. Each click will deliver 2 units of rapid acting insulin. Medications at Discharge Discharge Medications: Continue taking these medications: Citalopram Hydrobromide (Citalopram HBr) 20 MG TABLET 1 Tablet ORAL DAILY Comments: Last Taken:12/23/17 Time:9AM Aspirin (Aspirin*) 81 MG TAB.CHEW 1 Tablet ORAL DAILY Comments: Last Taken:12/23/17 Time:9AM Atorvastatin Calcium (Lipitor) 80 MG TABLET 1 Tablet ORAL DAILY Comments: Last Taken:12/23/17 Time:9AM Cholecalciferol (Vitamin D3) (Vitamin D) 2,000 UNIT TABLET 1 Tablet ORAL DAILY Comments: Last Taken:12/23/17 Time:9AM Carvedilol (Carvedilol) 25 MG TABLET 1 Tablet ORAL TWICE DAILY Qty = 180 Comments: Last Taken:12/23/17 Time:9AM Gabapentin (Gabapentin) 300 MG CAPSULE 1 Capsule ORAL THREE TIMES DAILY Qty = 90 Comments: NOT TAKEN Duloxetine HCl (Duloxetine HCl) 30 MG CAPSULE.DR 1 Capsule ORAL TWICE DAILY Qty = 60 Comments: Last Taken:12/23/17 Time:9AM Hydroxyzine Hydrochloride (Atarax) 25 MG TABLET 1 Tablet ORAL TWICE DAILY Qty = 60 Comments: NOT TAKEN Sacubitril/Valsartan (Entresto 97 MG-103 MG Tablet) 97 MG-103 MG TABLET 1 Tablet ORAL TWICE DAILY Qty = 60 Comments: Last Taken:12/23/17 Time:9AM Trazodone HCl (Trazodone HCl) 50 MG TABLET 1 Tablet ORAL Every night as needed for SLEEP Qty = 60 Comments: Last Taken:12/22/17 Time:10PM Start taking the following new medications: Furosemide (Furosemide) 20 MG TABLET 20 Milligram ORAL DAILY Qty = 30 No Refills Comments: Last Taken:12/23/17 Time:9AM The following medications have been changed: Old: Insulin Aspart (Novolog) 100 UNIT/ML CARTRIDGE 20 Units Inject into fatty tissue DAILY Qty = 30 New: Insulin Aspart (Novolog) 100 UNIT/ML CARTRIDGE 20 Units Inject into fatty tissue DAILY Qty = 30 Instructions: via VGO pump Comments: Last Taken:12/23/17 Time:12 NOON VIA SYRINGE INJECTION Copies To: Alta PECK,Maddison Lewis; Kendall PECK,Juan; Javier PECK,Matthew
== END 2017-12-23 15:00 | DRG 637 ==
LOC: ERH 04:46 → ERHI 12:48 → CRI 12:48 → ENRESERV 14:15 → ENTRNSPT 14:58 → EDTRNSPT 15:06 → EDTRNSPTSTS 15:06 → CRI 15:30 → CMPTRNSPT 15:30 → 1NO 12-21 23:40 → ENPENDDIS 12-23 13:41 → 1NO 12-23 15:00
PROVIDERS: Emergency Medicine; Internal Medicine; Internal Medicine Infectious Disease
DX: E11.10 Type 2 diabetes mellitus with ketoacidosis without coma (principal); I50.23 Acute on chronic systolic (congestive) heart failure; I24.8 Other forms of acute ischemic heart disease; I11.0 Hypertensive heart disease with heart failure; Z79.4 Long term (current) use of insulin; Z96.41 Presence of insulin pump (external) (internal); I25.5 Ischemic cardiomyopathy; I25.10 Atherosclerotic heart disease of native coronary artery without angina pectoris; Z95.1 Presence of aortocoronary bypass graft; E78.5 Hyperlipidemia, unspecified; Z95.810 Presence of automatic (implantable) cardiac defibrillator; F32.9 Major depressive disorder, single episode, unspecified; F42.9 Obsessive-compulsive disorder, unspecified; Z88.0 Allergy status to penicillin; M54.89 Other dorsalgia; Z79.82 Long term (current) use of aspirin; Z87.891 Personal history of nicotine dependence; F41.9 Anxiety disorder, unspecified; E86.0 Dehydration; D72.829 Elevated white blood cell count, unspecified; E11.65 Type 2 diabetes mellitus with hyperglycemia; R79.89 Other specified abnormal findings of blood chemistry
CPT/HCPCS: 1NSP; CCU; 36415; 36592; 71045; 81001; 82436; 87040; 87086; 87804; 87804-59; 93005; 93010; 93306; 96374; 96375; J0131; J1650; J1815; J2405; J3490